=== PATIENT | female | born 1970 | race African-American/Black ===

== ENCOUNTER 2022-02-20 15:31 | Emergency (ER) | payer SELFPAY ==
[~2022-02-20] VITALS: Ht 170.2 cm; Wt 106.9 kg
[2022-02-20 15:40] VITALS: BP 136/83
[2022-02-20] MEDS ORDERED: KETOROLAC 30 MG/ML VIAL. IM ONE (16:30)
[2022-02-20] MEDS ORDERED: ORPHENADRINE CITRATE 60 MG/2 ML VIAL. IM ONE (16:30)
[2022-02-20] MEDS ORDERED: ORPH100T PO (17:46)
--- NOTE | 2022-02-20 17:48 | PHYS DOC ---
Past Medical History Past Medical History: Depression, Diabetes-Type II, Hypertension Past Surgical History: General Adult EDM: Chief Complaint: MUSCLE SPASM/CRAMP HPI: HPI: Patient is a 51 year old female who presents with lateral left chest wall pain. Patient reports she slept in her car for few hours this morning, then slept on her couch at home. She reports that her pain began after waking up. Patient reports the pain starts on the lateral left chest and wraps around to her back. Pain is exacerbated with movement. Additionally, when she inspires deeply, the pain is exacerbated. Patient took a 4 mg Zanaflex at home, which improved her symptoms slightly. Patient denies substernal chest pressure, palpitations, cough, shortness of breath. Review of Systems: Review of Systems: Constitutional: Denies fever, chills or generalized weakness Eyes: Denies change in visual acuity, visual field deficits or discharge HENT: Denies ear pain, nasal congestion or sore throat Respiratory: See HPI Cardiovascular: See HPI GI: Denies abdominal pain, nausea, vomiting, bloody stools or diarrhea : Denies dysuria or hematuria Musculoskeletal: See HPI Integument: Denies rash or other skin lesion Neurologic: Denies headache, focal weakness or sensory changes Heart Score: C/O Chest Pain: N/A Current Medications: Current Medications Medications (Trade) Dose Ordered Sig/Jesenia Route PRN Reason Start Time Stop Time Status Last Admin Dose Admin Ketorolac Tromethamine (Toradol 30mg Vial) 30 mg 1X ONCE IM 02/20/22 16:30 02/20/22 16:31 DC 02/20/22 16:51 30 MG Allergies: Allergies: Allergies Coded Allergies Type Severity Reaction Last Updated Verified No Known Drug Allergies 02/20/22 No Physical Exam: PE: Constitutional: Well developed, well nourished, no acute distress, non-toxic appearance. HENT: Normocephalic, atraumatic, bilateral external ears normal, oropharynx moist, multiple missing dentition, nose normal. Eyes: EOMI, conjunctiva normal, no discharge. Neck: Normal range of motion, no stridor. Cardiovascular: Heart regular rate and rhythm. No apparent murmurs. Lungs & Thorax: Equal thoracic expansion, no increased work of breathing Skin: Warm, dry, no erythema, no rash. Back: No step-off, no tenderness. Neurologic: Alert and oriented x4, normal motor function, normal sensory functio n, no focal deficits noted. Current Patient Data: Vital Signs: Vital Signs Date Time Temp Pulse Resp B/P (MAP) Pulse Ox O2 Delivery O2 Flow Rate FiO2 02/20/22 15:40 98.5 88 18 136/83 (100) 95 Room Air 98.5 Course & Med Decision Making: Course & Med Decision Making Pertinent Labs and Imaging studies reviewed. (See chart for details) Patient reports that pain was very well controlled with Toradol. She requests prescription for muscle relaxer, which I advise she combine with ibuprofen at home. Return precautions are provided. Patient understands and is agreeable to discharge plan. TapPress Disclaimer: TapPress Disclaimer: This electronic medical record was generated, in whole or in part, using a voice recognition dictation system. Departure Departure Impression: Primary Impression: Musculoskeletal chest pain Disposition: HOME / SELF CARE / HOMELESS Condition: IMPROVED Referrals: NO PCP (PCP) Patient Instructions: Chest Wall Pain, [id number], Incentive Spirometer Additional Instructions: EMERGENCY DEPARTMENT GENERAL DISCHARGE INSTRUCTIONS Thank you for coming to [facility] Emergency Department (ED) today and trusting us with you care. We trust that you had a positive experience in our Emergency Department. If you wish to speak to the department management, you may call the director at . YOUR FOLLOW UP INSTRUCTIONS ARE FOLLOWS: 1. Follow up with your primary care doctor. If you do not have a primary doctor, please ask for a resource list of physicians or clinics that may be able to assist you with follow up care. 2. The emergency provider has interpreted your imaging studies, if any were ordered. The radiology entry specialists also reviewed them. If there is a change in the findings, you will be notified in 48 hours when at all possible. 3. If a lab test or culture has been done, your results will be reviewed and you will be notified if you need a change in treatment. 4. Follow instructions verbalized to you and refer to the printouts if needed. ADDITIONAL INSTRUCTIONS AND INFORMATION: 1. Your care today has been supervised by a physician who is specially trained in emergency care. Many problems require more than one evaluation for a complete diagnosis and treatment. We recommend that you schedule your follow up appointment as recommended to ensure complete treatment of you illness or injury. If you are unable to obtain follow up care and continue to have a problem, or if your condition worsens, we recommend that you return to the ED. 2. We are not able to safely determine your condition over the phone nor are we able to give sound medical advice over the phone. For these safety reasons, if you call for medical advice we will ask you to come to the ED for further eval uation. 3. If you have any questions regarding these discharge instructions please call the ED at . SAFETY INFORMATION: In the interest of safety, wellness, and injury prevention; we encourage you to wear your seat belt, if you smoke; quite smoking, and we encourage family to use a protective helmet for bicycling and other sporting events that present an increased risk for head injury. IF YOUR SYMPTOMS WORSEN OR NEW SYMPTOMS DEVELOP, OR YOU HAVE CONCERNS ABOUT YOUR CONDITION; OR IF YOUR CONDITION WORSENS WHILE YOU ARE WAITING FOR YOUR FOLLOW UP APPOINTMENT; EITHER CONTACT YOUR PRIMARY CARE DOCTOR, THE PHYSICIAN WHOSE NAME AND NUMBER YOU WERE GIVEN, OR RETURN TO THE ED IMMEDIATELY. Scripts Orphenadrine Citrate (ORPHENADRINE CITRATE) 100 Mg Tablet.er 1 TAB PO BID, #10 TAB 0 Refills Prov: KAMRYN KIDD 02/20/22 KAMRYN KIDD February 20, 2022 17:48
== END 2022-02-20 17:55 | disposition home or self-care (01) ==
LOC: ER 15:31
DX: R07.89 Other chest pain (principal); E11.9 Type 2 diabetes mellitus without complications; I10 Essential (primary) hypertension
CPT/HCPCS: 96372; 99283; J1885

== ENCOUNTER 2022-02-22 18:58 | Inpatient (IN) | payer SELFPAY ==
[~2022-02-22] VITALS: Ht 170.2 cm; Wt 110.0 kg
[~2022-02-22 18:58] MED LIST: ORPH100T PO
--- NOTE | 2022-02-22 19:40 | PHYS DOC ---
Past Medical History Past Medical History: Depression, Diabetes-Type II, Hypertension Past Surgical History: Smoking Status: Never Smoker Alcohol Use: None General Adult EDM: Chief Complaint: FLANK PAIN HPI: HPI: 51-year-old female, past medical history of hypertension, insulin-dependent diabetes, , presents with almost 1 week of left flank/left posterior chest wall pain. Patient states she was here 02/20/22 complaining of the same pain, seeing Toradol injection and discharged on muscle relaxer. However now she is complaining of dysuria, fatigue, and exertional SOB. Denies fever, chills, nausea, vomiting, chest pain. No diarrhea. No known sick contacts. No leg swelling, travel history, immobilization, hormone therapy, or cancer history. Review of Systems: Review of Systems: Constitutional: Denies fever or chills. [] Eyes: Denies change in visual acuity. [] HENT: Denies nasal congestion or sore throat. [] Respiratory: Denies cough or shortness of breath. [] Cardiovascular: Denies chest pain or edema. [] GI: + L flank/back pain; Denies abdominal pain, nausea, vomiting, bloody stools or diarrhea. [] : + dysuria. [] Musculoskeletal: Denies back pain or joint pain. [] Integument: Denies rash. [] Neurologic: Denies headache, focal weakness or sensory changes. [] Endocrine: Denies polyuria or polydipsia. [] Lymphatic: Denies swollen glands. [] Psychiatric: Denies depression or anxiety. [] Heart Score: C/O Chest Pain: No Risk Factors: Risk Factors: DM, Current or recent (<one month) smoker, HTN, HLP, family history of CAD, obesity. Risk Scores: Score 0 - 3: 2.5% MACE over next 6 weeks - Discharge Home Score 4 - 6: 20.3% MACE over next 6 weeks - Admit for Clinical Observation Score 7 - 10: 72.7% MACE over next 6 weeks - Early Invasive Strategies Current Medications: Current Medications Medications (Trade) Dose Ordered Sig/Jesenia Start Time Stop Time Status Last Admin Dose Admin Morphine Sulfate (Morphine Sulfate) 4 mg 1X ONCE 02/22/22 19:45 02/22/22 19:46 UNV Sodium Chloride 1,000 ml @ 999 mls/hr 1X ONCE 02/22/22 19:45 02/22/22 20:45 UNV Allergies: Allergies: Allergies Coded Allergies Type Severity Reaction Last Updated Verified No Known Drug Allergies 02/22/22 No Physical Exam: PE: Constitutional: Well developed, well nourished, no acute distress, non-toxic appearance. [] HENT: Normocephalic, atraumatic, bilateral external ears normal, oropharynx moist, no oral exudates, nose normal. [] Eyes: PERRLA, EOMI, conjunctiva normal, no discharge. [] Neck: Normal range of motion, no tenderness, supple, no stridor. [] Cardiovascular: Sinus tachycardia, no murmur [] Lungs & Thorax: Bilateral breath sounds clear to auscultation [] Abdomen: Bowel sounds normal, soft, no tenderness, no masses, no pulsatile masses. [] Skin: Warm, dry, no erythema, no rash. [] Back: No tenderness, + left CVA tenderness. [] Extremities: No tenderness, no cyanosis, no clubbing, ROM intact, no edema. [] Neurologic: Alert and oriented X 3, normal motor function, normal sensory function, no focal deficits noted. [] Psychologic: Affect normal, judgement normal, mood normal. [] Current Patient Data: Vital Signs: Vital Signs Date Time Temp Pulse Resp B/P (MAP) Pulse Ox O2 Delivery O2 Flow Rate FiO2 02/22/22 19:25 98.0 117 18 179/87 (117) 95 Room Air 98.0 EKG: EKG: [] Radiology/Procedures: Radiology/Procedures: [] Course & Med Decision Making: Course & Med Decision Making Pertinent Labs and Imaging studies reviewed. (See chart for details) Additional Social History: PMD from non-affiliated facility. Patient Lives at home. Family History: Non-pertinent to today's complaint. Nursing Notes Reviewed Previous Medical Records requested via [facility] Web: Reviewed by me. EMERGENT LABS AND DIAGNOSTIC STUDIES: Results were reviewed and interpreted by me as below PROCEDURE: PORTABLE CHEST 1V IMPRESSION: Moderate left-sided pleural effusion with adjacent airspace disease EMERGENCY DEPARTMENT COURSE/ MEDICAL DECISION MAKING: The patient was placed on a gambling monitor, continuous pulse oximetry and was given supplemental oxygen. I examined the patient, evaluated and addressed patient's chief complaint. Suspicious for pyelonephritis versus cystitis. Rule out other metabolic derangements and infectious etiology. Lower suspicion for ACS, acute PE, AAA, dissection The patient was treated with IV fluids, morphine, zofran Found to have large L pleural effusion and WBC 19, concerning for pneumonia, s/p Ceftriaxone and Doxy, pending cardiac labs and d-dimer Admit tele for pneumonia/effusion After evaluation, I believe the patient is at risk for decompensation and will require admission. However, patients abnormal vital signs/labs are not consistent with sepsis, and the patient does not meet the criteria for sepsis at this time. I discussed the patient's case with Dr. Feng, who expressed understanding and agreed to admit the patient. I suspect the patient will be hospitalized for at least 2 midnights. DIAGNOSTIC IMPRESSION: 1. LLL pneumonia 2. L pleural effusion 3. L back pain DISPOSITION: Disposition: Admit to tele under the service of Dr. Feng Condition: Stable Dragon Disclaimer: Aaliyah Disclaimer: This electronic medical record was generated, in whole or in part, using a voice recognition dictation system. Departure Departure Impression: Primary Impression: Left lower lobe pneumonia Additional Impressions: Hypoxia Exertional dyspnea Large pleural effusion Back pain Disposition: ADMITTED INPATIENT Condition: GUARDED Referrals: NO PCP (PCP) MARILYN LOPEZ MD February 22, 2022 19:39
[2022-02-22] MEDS ORDERED: IV NORMAL SALINE 1000ML BAG 1,000 ML IV ONE (19:45)
[2022-02-22] MEDS ORDERED: MORPHINE SULFATE 4 MG/ML INJ. IVP ONE (19:45)
[2022-02-22 19:57] LABS: BASO # 0.1 x10^3/uL (0.0-0.2); BASO % 0 % (0-3); EOS % 0 % (0-3); HEMATOCRIT 40.8 % (36.0-47.0); HEMOGLOBIN 13.8 g/dL (12.0-15.5); LYMPH # 1.4 x10^3/uL (1.0-4.8); LYMPH % 7 % (24-48); MEAN CORPUSCULAR HEMOGLOBIN 32 pg (25-35); MEAN CORPUSCULAR HGB CONC 34 g/dL (31-37); MEAN CORPUSCULAR VOLUME 95 fL (79-100); MONO # 1.3 x10^3/uL (0.0-1.1); MONO % 7 % (0-9); NEUT # 16.6 x10^3/uL (1.8-7.7); NEUT % 86 % (31-73); PLATELET COUNT 233 x10^3/uL (140-400); RED BLOOD COUNT 4.31 x10^6/uL (3.50-5.40); RED CELL DISTRIBUTION WIDTH 14.1 % (11.5-14.5); WHITE BLOOD COUNT 19.4 x10^3/uL (4.0-11.0)
[2022-02-22 20:13] LABS: CALCIUM 9.7 mg/dL (8.5-10.1); GFR 70.2; POTASSIUM 3.7 mmol/L (3.5-5.1)
[2022-02-22 20:18] LABS: ALBUMIN 2.8 g/dL (3.4-5.0); ALBUMIN/GLOBULIN RATIO 0.6 (1.0-1.7); TOTAL PROTEIN 7.4 g/dL (6.4-8.2)
[2022-02-22] MEDS ORDERED: cefTRIAXone IV Push 1 GM VIAL. IVP ONE (20:30)
[2022-02-22 20:37] LABS: % LYMPHS 5 % (24-48); % MONOS 8 % (0-10); % SEGS 87 % (35-66); PLT ESTIMATE ADEQUATE (ADEQUATE)
[2022-02-22] MEDS ORDERED: ONDANSETRON PF 4 MG/2 ML VIAL. ONE (20:51)
[2022-02-22] MEDS ORDERED: DOXYCYCLINE HYCLATE 100 MG in IV DEXTROSE 5% 100ML 100 ML IV ONE (21:00)
[2022-02-22] MEDS ORDERED: ONDANSETRON PF 4 MG/2 ML VIAL. IVP ONE (21:00)
--- NOTE | 2022-02-22 21:32 | RAD ---
Exam: Chest one view INDICATION: Shortness of breath, pain TECHNIQUE: Frontal view of the chest Comparisons: None FINDINGS: The cardiomediastinal silhouette and pulmonary vessels are within normal limits. Moderate left pleural effusion, with adjacent airspace disease. IMPRESSION: Moderate left-sided pleural effusion with adjacent airspace disease Electronically signed by: Isabel Wharton MD (02/22/2022 9:30 PM) SAM
--- NOTE | 2022-02-22 22:27 | HP ---
DATE OF SERVICE: 02/22/2022 ADMIT DATE: 02/22/2022 CHIEF COMPLAINT: Flank pain. HISTORY OF PRESENT ILLNESS: The patient is a pleasant 51-year-old female who has abdominal pain and flank pain when she breathes in. We did a chest x-ray. She has a large left pleural effusion. We are going to admit the patient, give her IV antibiotics and consult Pulmonary and Interventional Radiology. PAST MEDICAL HISTORY: Depression, diabetes, hypertension, . ALLERGIES: None. FAMILY HISTORY: Diabetes. SOCIAL HISTORY: She does not drink, smoke or take drugs. MEDICATIONS: Reviewed. Please refer to the MRAD. REVIEW OF SYSTEMS: GENERAL: No history of weight change, weakness or fevers. SKIN: No bruising, hair changes or rashes. EYES: No blurred, double or loss of vision. NOSE AND THROAT: No history of nosebleeds, hoarseness or sore throat. HEART: No history of palpitations, chest pain or shortness of breath on exertion. LUNGS: She complains of shortness of breath and pain with inspiration. GASTROINTESTINAL: She complains of flank pain. GENITOURINARY: No history of frequency, urgency, hesitancy or nocturia. NEUROLOGIC: Denies history of numbness, tingling, tremor or weakness. PSYCHIATRIC: No history of panic, anxiety or depression. ENDOCRINE: No history of heat or cold intolerance, polyuria or polydipsia. EXTREMITIES: Denies muscle weakness, joint pain, pain on walking or stiffness. PHYSICAL EXAMINATION: VITALS: Within normal limits and are stable. GENERAL: No apparent distress. Alert and oriented. HEENT: Normal cephalic atraumatic, external auditory canals are patent. EYES: Extraocular muscles are intact, pupils are equally round and reactive to light and accommodation. MUSCULOSKELETAL: Well developed, well nourished, good range of motion. ENDOCRINE: No thyromegaly was palpated. LYMPHATICS: No cervical chain or axillary nodes were noted. HEMATOPOIETIC: No bruising. NECK: Supple, no JVD, no thyromegaly was noted. LUNGS: She has decreased breath sounds on the left. HEART: RRR, S1, S2 present. Peripheral pulses intact, no obvious murmurs were noted. ABDOMEN: Soft, nontender. Positive bowel sounds no organomegaly, normal bowel sounds. EXTREMITIES: Without any cyanosis, clubbing, or edema. Pedal pulses intact, Homans sign is negative. NEUROLOGIC: Normal speech, normal tone. A and O x 3, moves all extremities, no obvious focal deficits. PSYCHIATRIC: Normal affect, normal mood. Stable. SKIN: No ulcerations or rashes, good skin turgor, no jaundice. VASCULAR: Good capillary refill, neurovascular bundle appears to be intact. LABORATORY DATA: White count is 19. ASSESSMENT AND PLAN: Pneumonia and left pleural effusion. The patient will be admitted. We will start IV antibiotics, breathing treatments, oxygen. Consult Pulmonary, consult Interventional Radiology to consider left thoracentesis. Deep venous thrombosis prophylaxis. Full code. JACKIE/ERWIN DR: Vladimir TID: [id number]
[2022-02-22 23:00] VITALS: BP 147/66
[2022-02-22] MEDS ORDERED: ONDANSETRON PF 4 MG/2 ML VIAL. IVP PRN (23:30)
[2022-02-23] MEDS: MORPHINE SULFATE 4 MG/ML INJ. IV PRN ×3 (00:28→08:51)
[2022-02-23 03:00] VITALS: BP 119/71
[2022-02-23] MEDS: IPRATRPIUM/ALBUTEROL 0.5/2.5MG 3 ML NEBU. NEB SCH ×4 (05:45→19:35)
[2022-02-23 07:00] VITALS: BP 134/69
--- NOTE | 2022-02-23 07:44 | PDOC ---
PULMONARY PROGRESS NOTES DATE: 02/23/22 TIME: 07:43 Vitals Vital Signs Date Time Temp Pulse Resp B/P (MAP) Pulse Ox O2 Delivery O2 Flow Rate FiO2 02/23/22 05:45 96 Room Air 02/23/22 03:00 98.3 94 20 119/71 (87) 2.0 98.3 Labs Laboratory Tests Test 02/22/22 19:45 02/23/22 07:30 White Blood Count 19.4 x10^3/uL (4.0-11.0) Red Blood Count 4.31 x10^6/uL (3.50-5.40) Hemoglobin 13.8 g/dL (12.0-15.5) Hematocrit 40.8 % (36.0-47.0) Mean Corpuscular Volume 95 fL (79-100) Mean Corpuscular Hemoglobin 32 pg (25-35) Mean Corpuscular Hemoglobin Concent 34 g/dL (31-37) Red Cell Distribution Width 14.1 % (11.5-14.5) Platelet Count 233 x10^3/uL (140-400) Neutrophils (%) (Auto) 86 % (31-73) Lymphocytes (%) (Auto) 7 % (24-48) Monocytes (%) (Auto) 7 % (0-9) Eosinophils (%) (Auto) 0 % (0-3) Basophils (%) (Auto) 0 % (0-3) Neutrophils # (Auto) 16.6 x10^3/uL (1.8-7.7) Lymphocytes # (Auto) 1.4 x10^3/uL (1.0-4.8) Monocytes # (Auto) 1.3 x10^3/uL (0.0-1.1) Eosinophils # (Auto) 0.0 x10^3/uL (0.0-0.7) Basophils # (Auto) 0.1 x10^3/uL (0.0-0.2) Segmented Neutrophils % 87 % (35-66) Lymphocytes % 5 % (24-48) Monocytes % 8 % (0-10) Platelet Estimate Adequate (ADEQUATE) D-Dimer (Martha) 3.36 ug/mlFEU (0.00-0.50) Sodium Level 139 mmol/L (136-145) Potassium Level 3.7 mmol/L (3.5-5.1) Chloride Level 96 mmol/L (98-107) Carbon Dioxide Level 26 mmol/L (21-32) Anion Gap 17 (6-14) Blood Urea Nitrogen 14 mg/dL (7-20) Creatinine 1.0 mg/dL (0.6-1.0) Estimated GFR (Cockcroft-Gault) 70.2 BUN/Creatinine Ratio 14 (6-20) Glucose Level 227 mg/dL (70-99) Lactic Acid Level 1.5 mmol/L (0.4-2.0) Calcium Level 9.7 mg/dL (8.5-10.1) Total Bilirubin 1.0 mg/dL (0.2-1.0) Aspartate Amino Transf (AST/SGOT) 11 U/L (15-37) Alanine Aminotransferase (ALT/SGPT) 26 U/L (14-59) Alkaline Phosphatase 166 U/L (46-116) Troponin I High Sensitivity 8 ng/L (4-50) FE-[id number]-Type Natriuretic Peptide 69 pg/mL (0-124) Total Protein 7.4 g/dL (6.4-8.2) Albumin 2.8 g/dL (3.4-5.0) Albumin/Globulin Ratio 0.6 (1.0-1.7) SARS-CoV-2 Antigen (Rapid) Negative (NEGATIVE) Glucose (Fingerstick) 132 mg/dL (70-99) Laboratory Tests Test 02/22/22 19:45 02/23/22 07:30 White Blood Count 19.4 x10^3/uL (4.0-11.0) Red Blood Count 4.31 x10^6/uL (3.50-5.40) Hemoglobin 13.8 g/dL (12.0-15.5) Hematocrit 40.8 % (36.0-47.0) Mean Corpuscular Volume 95 fL (79-100) Mean Corpuscular Hemoglobin 32 pg (25-35) Mean Corpuscular Hemoglobin Concent 34 g/dL (31-37) Red Cell Distribution Width 14.1 % (11.5-14.5) Platelet Count 233 x10^3/uL (140-400) Neutrophils (%) (Auto) 86 % (31-73) Lymphocytes (%) (Auto) 7 % (24-48) Monocytes (%) (Auto) 7 % (0-9) Eosinophils (%) (Auto) 0 % (0-3) Basophils (%) (Auto) 0 % (0-3) Neutrophils # (Auto) 16.6 x10^3/uL (1.8-7.7) Lymphocytes # (Auto) 1.4 x10^3/uL (1.0-4.8) Monocytes # (Auto) 1.3 x10^3/uL (0.0-1.1) Eosinophils # (Auto) 0.0 x10^3/uL (0.0-0.7) Basophils # (Auto) 0.1 x10^3/uL (0.0-0.2) Segmented Neutrophils % 87 % (35-66) Lymphocytes % 5 % (24-48) Monocytes % 8 % (0-10) Platelet Estimate Adequate (ADEQUATE) D-Dimer (Martha) 3.36 ug/mlFEU (0.00-0.50) Sodium Level 139 mmol/L (136-145) Potassium Level 3.7 mmol/L (3.5-5.1) Chloride Level 96 mmol/L (98-107) Carbon Dioxide Level 26 mmol/L (21-32) Anion Gap 17 (6-14) Blood Urea Nitrogen 14 mg/dL (7-20) Creatinine 1.0 mg/dL (0.6-1.0) Estimated GFR (Cockcroft-Gault) 70.2 BUN/Creatinine Ratio 14 (6-20) Glucose Level 227 mg/dL (70-99) Lactic Acid Level 1.5 mmol/L (0.4-2.0) Calcium Level 9.7 mg/dL (8.5-10.1) Total Bilirubin 1.0 mg/dL (0.2-1.0) Aspartate Amino Transf (AST/SGOT) 11 U/L (15-37) Alanine Aminotransferase (ALT/SGPT) 26 U/L (14-59) Alkaline Phosphatase 166 U/L (46-116) Troponin I High Sensitivity 8 ng/L (4-50) [id number]-[id number]-Type Natriuretic Peptide 69 pg/mL (0-124) Total Protein 7.4 g/dL (6.4-8.2) Albumin 2.8 g/dL (3.4-5.0) Albumin/Globulin Ratio 0.6 (1.0-1.7) SARS-CoV-2 Antigen (Rapid) Negative (NEGATIVE) Glucose (Fingerstick) 132 mg/dL (70-99) Medications Active Scripts Medications Dose Route/Sig Max Daily Dose Days Date Category Orphenadrine Citrate 100 Mg Tablet.er 1 Tab PO BID 02/20/22 Rx Impression . Full consult to be dictated Review chest x-ray Large left-sided effusion Proceed with thoracentesis, send pleural fluid for routine analysis Rule out PE see orders ARELY YANES MD February 23, 2022 07:43
[2022-02-23] MEDS ORDERED: IOHEXOL 300 MG/ML 100ML VIAL. IV ONE (08:45)
[2022-02-23] MEDS ORDERED: CONTRAST GIVEN. MC PRN (09:00)
--- NOTE | 2022-02-23 09:46 | RAD ---
EXAMINATION: CTA Chest With IV contrast INDICATION:51 years, Female, shortness of breath, pleural effusion, evaluate for pulmonary embolism. COMPARISON: None. TECHNIQUE: Spiral CTA was obtained from the jugular notch through the posterior costophrenic recess. 3-D MIPS, sagittal and coronal reformats were obtained. Exposure: One or more of the following individualized dose reduction techniques were utilized for thi s examination: 1. Automated exposure control 2. Adjustment of the mA and/or kV according to patient size 3. Use of iterative reconstruction technique. FINDINGS: LUNGS/PLEURA: Central airways are patent. Small to moderate left pleural effusion with associated com pressive atelectasis. Segmental atelectasis in the right lung base and right middle lobe. No pneumoth orax. No suspicious pulmonary nodule. Calcified granuloma in the right upper lobe.. MEDIASTINUM: No pathologic mediastinal or hilar adenopathy. The thoracic aorta and pulmonary arteries are normal in caliber. Evaluation for pulmonary embolism is limited due to contrast bolus timing. No central pulmonary embolism to the lobar level. The heart is normal in size. No pericardial effusion. No detectable calcified coronary atherosclerosis. The visualized thyroid and the esophagus are unrem arkable. AXILLA/SOFT TISSUE: Mildly enlarged right axillary lymph nodes measuring up to 1.1 cm in short axis, nonspecific. Regional soft tissues are within normal limits. UPPER ABDOMEN: Diffuse hepatic steatosis. Nodular thickening of the left adrenal gland without discre te nodule. BONES: No evidence of acute fractures or aggressive osseous lesions. IMPRESSION: 1. No central pulmonary embolism to the lobar level. Evaluation for pulmonary embolism is limited du e to contrast bolus timing. 2. Small to moderate left pleural effusion with associated compressive atelectasis. Segmental atelec tasis in the right lung base and right middle lobe. 3. Mildly enlarged right axillary lymph nodes, nonspecific. 4. Diffuse hepatic steatosis. Electronically signed by: Shay Dill MD (02/23/2022 9:43 AM) [facility]
[2022-02-23] MEDS: DOXYCYCLINE HYCLATE 100 MG in IV DEXTROSE 5% 100ML 100 ML IV SCH ×2 (09:55→21:16)
[2022-02-23 11:00] VITALS: BP 131/70
[2022-02-23] MEDS: LACTOBACILLUS RHAMNOSUS GG 1 CAPSULE. PO SCH ×2 (11:00→21:15)
[2022-02-23] MEDS ORDERED: IV NORMAL SALINE 1000ML BAG 1,000 ML IV ONE (13:00)
[2022-02-23] MEDS ORDERED: PROCHLORPERAZINE 10 MG/2 ML VIAL. IM PRN (13:00)
[2022-02-23] MEDS: oxyCODONE/APAP 5/325 1 TAB TABLET PO PRN (13:05)
[2022-02-23 15:00] VITALS: BP 131/68
[2022-02-23 19:00] VITALS: BP 116/71
--- NOTE | 2022-02-23 19:14 | PDOC ---
[facility] [facility] PROGRESS NOTE Date of Service DOS: DATE: 02/23/22 TIME: 19:13 Chief Complaint Chief Complaint Pneumonia and left pleural effusion. The patient will be admitted. We will start IV antibiotics, breathing treatments, oxygen. Consult Pulmonary, consult Interventional Radiology to consider left thoracentesis. Deep venous thrombosis prophylaxis. Full code. History of Present Illness History of Present Illness 02/23 Patient evaluated examined at bedside. Resting in bed on nasal cannula still some shortness of breath. Discussed with patient and son at bedside at great length regarding plan of care. Continue IV antibiotics. Possible thoracentesis tomorrow. Pulmonary recommendations reviewed. Discussed with bedside RN. Vitals/I&O Vitals/I&O: Vital Signs Date Time Temp Pulse Resp B/P (MAP) Pulse Ox O2 Delivery O2 Flow Rate FiO2 02/23/22 16:08 98 Nasal Cannula 2.0 02/23/22 15:00 97.8 90 20 131/68 (89) 97.8 I & O 02/22/22 02/22/22 02/23/22 15:00 23:00 07:00 Intake Total 660 ml Balance 660 ml Physical Exam General: Alert, Oriented X3, Cooperative Heart: Regular rate, Normal S1, Normal S2 Lungs: Other (decreased throughout) Abdomen: Normal bowel sounds, Soft, No tenderness Extremities: No edema, Normal pulses Skin: No significant lesion Labs Labs: Laboratory Tests Test 02/22/22 19:45 02/23/22 07:30 02/23/22 11:15 02/23/22 16:51 White Blood Count 19.4 x10^3/uL (4.0-11.0) Red Blood Count 4.31 x10^6/uL (3.50-5.40) Hemoglobin 13.8 g/dL (12.0-15.5) Hematocrit 40.8 % (36.0-47.0) Mean Corpuscular Volume 95 fL (79-100) Mean Corpuscular Hemoglobin 32 pg (25-35) Mean Corpuscular Hemoglobin Concent 34 g/dL (31-37) Red Cell Distribution Width 14.1 % (11.5-14.5) Platelet Count 233 x10^3/uL (140-400) Neutrophils (%) (Auto) 86 % (31-73) Lymphocytes (%) (Auto) 7 % (24-48) Monocytes (%) (Auto) 7 % (0-9) Eosinophils (%) (Auto) 0 % (0-3) Basophils (%) (Auto) 0 % (0-3) Neutrophils # (Auto) 16.6 x10^3/uL (1.8-7.7) Lymphocytes # (Auto) 1.4 x10^3/uL (1.0-4.8) Monocytes # (Auto) 1.3 x10^3/uL (0.0-1.1) Eosinophils # (Auto) 0.0 x10^3/uL (0.0-0.7) Basophils # (Auto) 0.1 x10^3/uL (0.0-0.2) Segmented Neutrophils % 87 % (35-66) Lymphocytes % 5 % (24-48) Monocytes % 8 % (0-10) Platelet Estimate Adequate (ADEQUATE) D-Dimer (Martha) 3.36 ug/mlFEU (0.00-0.50) Sodium Level 139 mmol/L (136-145) Potassium Level 3.7 mmol/L (3.5-5.1) Chloride Level 96 mmol/L (98-107) Carbon Dioxide Level 26 mmol/L (21-32) Anion Gap 17 (6-14) Blood Urea Nitrogen 14 mg/dL (7-20) Creatinine 1.0 mg/dL (0.6-1.0) Estimated GFR (Cockcroft-Gault) 70.2 BUN/Creatinine Ratio 14 (6-20) Glucose Level 227 mg/dL (70-99) Lactic Acid Level 1.5 mmol/L (0.4-2.0) Calcium Level 9.7 mg/dL (8.5-10.1) Total Bilirubin 1.0 mg/dL (0.2-1.0) Aspartate Amino Transf (AST/SGOT) 11 U/L (15-37) Alanine Aminotransferase (ALT/SGPT) 26 U/L (14-59) Alkaline Phosphatase 166 U/L (46-116) Troponin I High Sensitivity 8 ng/L (4-50) PC-Ira-C-Type Natriuretic Peptide 69 pg/mL (0-124) Total Protein 7.4 g/dL (6.4-8.2) Albumin 2.8 g/dL (3.4-5.0) Albumin/Globulin Ratio 0.6 (1.0-1.7) SARS-CoV-2 Antigen (Rapid) Negative (NEGATIVE) Glucose (Fingerstick) 132 mg/dL (70-99) 198 mg/dL (70-99) 284 mg/dL (70-99) Assessment and Plan Assessmemt and Plan Problems Medical Problems: (1) Back pain Status: Acute (2) Exertional dyspnea Status: Acute (3) Hypoxia Status: Acute (4) Large pleural effusion Status: Acute (5) Left lower lobe pneumonia Status: Acute Comment Review of Relevant I have reviewed the following items becca (where applicable) has been applied. Medications: Current Medications Medications (Trade) Dose Ordered Sig/Jesenia Route PRN Reason Start Time Stop Time Status Last Admin Dose Admin Sodium Chloride 1,000 ml @ 999 mls/hr 1X ONCE IV 02/22/22 19:45 02/22/22 20:45 DC 02/22/22 19:45 Morphine Sulfate (Morphine Sulfate) 4 mg 1X ONCE IVP 02/22/22 19:45 02/22/22 19:54 DC 02/22/22 19:45 Ceftriaxone Sodium (Rocephin) 1 gm 1X ONCE IVP 02/22/22 20:30 02/22/22 20:31 DC 02/22/22 20:30 Doxycycline Hyclate 100 mg/ Dextrose 100 ml @ 50 mls/hr 1X ONCE IV 02/22/22 21:00 02/22/22 22:59 DC 02/22/22 21:00 Ondansetron HCl (Zofran) 4 mg 1X ONCE IVP 02/22/22 21:00 02/22/22 21:01 DC 02/22/22 21:00 Doxycycline Hyclate 100 mg/ Dextrose 100 ml @ 50 mls/hr Q12HR IV 02/23/22 09:00 02/23/22 09:55 Albuterol/ Ipratropium (Duoneb) 3 ml RTQID NEB 02/23/22 08:00 02/23/22 16:08 Morphine Sulfate (Morphine Sulfate) 4 mg PRN Q3HRS PRN IV SEVERE PAIN 7-10 02/22/22 23:30 02/23/22 08:51 Ondansetron HCl (Zofran) 8 mg PRN Q6HRS PRN IVP NAUSEA/VOMITING 1ST CHOICE 02/22/22 23:30 02/23/22 08:51 Enoxaparin Sodium (Lovenox 120mg Syringe) 110 mg Q12HR SQ 02/23/22 09:00 02/23/22 14:21 DC 02/23/22 09:54 Iohexol (Omnipaque 300 Mg/ml) 100 ml 1X ONCE IV 02/23/22 08:45 02/23/22 08:59 DC 02/23/22 08:45 Prochlorperazine Edisylate (Compazine) 10 mg PRN Q6HRS PRN IM NAUSEA/VOMITING 02/23/22 13:00 02/23/22 13:05 Oxycodone/ Acetaminophen (Percocet 5/325) 1 tab PRN Q4HRS PRN PO SEVERE PAIN 02/23/22 13:00 02/23/22 13:05 Sodium Chloride 1,000 ml @ 75 mls/hr 1X ONCE IV 02/23/22 13:00 02/24/22 02:19 02/23/22 13:00 Justifications for Admission Other Justification FREDDIE MOSLEY MD February 23, 2022 19:14
[2022-02-23] MEDS ORDERED: DEXTROSE 50% 25 GM / 50ML DISP.SYRIN. IV PRN (19:15)
[2022-02-23] MEDS: cefTRIAXone IV Push 1 GM VIAL. IVP SCH (21:13)
[2022-02-23] MEDS ORDERED: LOSA1TAB25 PO (21:52)
[2022-02-23] MEDS ORDERED: ATOR40TA59 PO (21:52)
[2022-02-23] MEDS ORDERED: ASPI-630 PO (21:52)
[2022-02-23] MEDS ORDERED: BUPR450T3 PO (21:52)
[2022-02-23] MEDS ORDERED: EMPA25TA3 PO (21:52)
[2022-02-23] MEDS ORDERED: AMLO-187 PO (21:52)
[2022-02-23] MEDS ORDERED: IBUP-1060 PO (21:52)
[2022-02-23] MEDS ORDERED: IBUPROFEN 400 MG TABLET. PO PRN (22:15)
[2022-02-23] MEDS: CYCLOBENZAPRINE 10 MG TABLET. PO SCH (22:30)
[2022-02-23] MEDS: ATORVASTATIN CALCIUM 40 MG TABLET. PO SCH (22:30)
[2022-02-23 23:00] VITALS: BP 132/69
[2022-02-24] VITALS (10 sets, daily range): BP systolic 102–174; BP diastolic 57–105
[2022-02-24] MEDS: oxyCODONE/APAP 5/325 1 TAB TABLET PO PRN ×2 (03:07→21:17)
[2022-02-24] MEDS: IPRATRPIUM/ALBUTEROL 0.5/2.5MG 3 ML NEBU. NEB SCH ×4 (07:57→19:37)
[2022-02-24] MEDS: INSULIN LISPRO 300 UNITS/3 ML VIAL. SQ SCH ×3 (08:00→17:00)
[2022-02-24] MEDS: DOXYCYCLINE HYCLATE 100 MG in IV DEXTROSE 5% 100ML 100 ML IV SCH (08:48)
--- NOTE | 2022-02-24 09:03 | PDOC ---
PULMONARY PROGRESS NOTES DATE: 02/24/22 TIME: 09:03 Subjective Patient still has pleurisy, not more short of air. Cough mostly nonproductive Vitals Vital Signs Date Time Temp Pulse Resp B/P (MAP) Pulse Ox O2 Delivery O2 Flow Rate FiO2 02/24/22 07:57 96 Nasal Cannula 2.0 02/24/22 07:00 98.4 101 20 151/81 (104) 98.4 ROS: No Nausea, No Chest Pain, No Abdominal Pain, No Increase Cough Lungs: Other (decreased throughout) Cardiovascular: S2 Abdomen: Soft Neuro Exam: Alert Extremities: No Edema Skin: Warm Labs Laboratory Tests Test 02/22/22 19:45 02/23/22 07:30 02/23/22 11:15 02/23/22 16:51 White Blood Count 19.4 x10^3/uL (4.0-11.0) Red Blood Count 4.31 x10^6/uL (3.50-5.40) Hemoglobin 13.8 g/dL (12.0-15.5) Hematocrit 40.8 % (36.0-47.0) Mean Corpuscular Volume 95 fL (79-100) Mean Corpuscular Hemoglobin 32 pg (25-35) Mean Corpuscular Hemoglobin Concent 34 g/dL (31-37) Red Cell Distribution Width 14.1 % (11.5-14.5) Platelet Count 233 x10^3/uL (140-400) Neutrophils (%) (Auto) 86 % (31-73) Lymphocytes (%) (Auto) 7 % (24-48) Monocytes (%) (Auto) 7 % (0-9) Eosinophils (%) (Auto) 0 % (0-3) Basophils (%) (Auto) 0 % (0-3) Neutrophils # (Auto) 16.6 x10^3/uL (1.8-7.7) Lymphocytes # (Auto) 1.4 x10^3/uL (1.0-4.8) Monocytes # (Auto) 1.3 x10^3/uL (0.0-1.1) Eosinophils # (Auto) 0.0 x10^3/uL (0.0-0.7) Basophils # (Auto) 0.1 x10^3/uL (0.0-0.2) Segmented Neutrophils % 87 % (35-66) Lymphocytes % 5 % (24-48) Monocytes % 8 % (0-10) Platelet Estimate Adequate (ADEQUATE) D-Dimer (Martha) 3.36 ug/mlFEU (0.00-0.50) Sodium Level 139 mmol/L (136-145) Potassium Level 3.7 mmol/L (3.5-5.1) Chloride Level 96 mmol/L (98-107) Carbon Dioxide Level 26 mmol/L (21-32) Anion Gap 17 (6-14) Blood Urea Nitrogen 14 mg/dL (7-20) Creatinine 1.0 mg/dL (0.6-1.0) Estimated GFR (Cockcroft-Gault) 70.2 BUN/Creatinine Ratio 14 (6-20) Glucose Level 227 mg/dL (70-99) Lactic Acid Level 1.5 mmol/L (0.4-2.0) Calcium Level 9.7 mg/dL (8.5-10.1) Total Bilirubin 1.0 mg/dL (0.2-1.0) Aspartate Amino Transf (AST/SGOT) 11 U/L (15-37) Alanine Aminotransferase (ALT/SGPT) 26 U/L (14-59) Alkaline Phosphatase 166 U/L (46-116) Troponin I High Sensitivity 8 ng/L (4-50) OI-Uih-G-Type Natriuretic Peptide 69 pg/mL (0-124) Total Protein 7.4 g/dL (6.4-8.2) Albumin 2.8 g/dL (3.4-5.0) Albumin/Globulin Ratio 0.6 (1.0-1.7) SARS-CoV-2 Antigen (Rapid) Negative (NEGATIVE) Glucose (Fingerstick) 132 mg/dL (70-99) 198 mg/dL (70-99) 284 mg/dL (70-99) Test 02/23/22 20:41 02/24/22 07:41 Glucose (Fingerstick) 255 mg/dL (70-99) 159 mg/dL (70-99) Laboratory Tests Test 02/23/22 11:15 02/23/22 16:51 02/23/22 20:41 02/24/22 07:41 Glucose (Fingerstick) 198 mg/dL (70-99) 284 mg/dL (70-99) 255 mg/dL (70-99) 159 mg/dL (70-99) Medications Active Scripts Medications Dose Route/Sig Max Daily Dose Days Date Category Orphenadrine Citrate 100 Mg Tablet.er 1 Tab PO BID 02/20/22 Rx Impression . Progressive dyspnea multifactorial CT angiogram from yesterday reviewed, no evidence of PE, there is a loculated effusion loculated effusion Pneumonia with parapneumonic effusion Type 2 diabetes Leukocytosis Plan . Plan Change Lovenox dosing to DVT prophylaxis Discussed with interventional radiologist, proceed with chest tube placement Routine analysis of pleural fluid, including microbiology and cytology Monitor blood sugars ARELY YANES MD February 24, 2022 09:03
[2022-02-24] MEDS ORDERED: fentaNYL PF VIAL 100 MCG/2 ML VIAL IV ONE (15:15)
[2022-02-24] MEDS: hydroCHLOROthiazide 12.5 MG TABLET PO SCH (15:46)
[2022-02-24] MEDS: ASPIRIN CHEWABLE 81 MG TABLET. PO SCH (15:46)
[2022-02-24] MEDS: buPROPion XL 150 MG TAB.ER.24H. PO SCH (15:46)
[2022-02-24] MEDS: EMPAGLIFLOZIN 25 MG TABLET. PO SCH (15:46)
[2022-02-24] MEDS: LOSARTAN POTASSIUM 50 MG TABLET. PO SCH (15:47)
[2022-02-24] MEDS: LACTOBACILLUS RHAMNOSUS GG 1 CAPSULE. PO SCH ×2 (15:47→21:16)
[2022-02-24] MEDS: ENOXAPARIN 40 MG/0.4 ML SYRINGE. SQ SCH (15:48)
[2022-02-24] MEDS: CYCLOBENZAPRINE 10 MG TABLET. PO SCH ×2 (15:50→19:15)
--- NOTE | 2022-02-24 16:25 | PDOC ---
[facility] PROGRESS NOTE Date of Service DOS: DATE: 02/24/22 TIME: 16:24 Chief Complaint Chief Complaint Pneumonia and left pleural effusion. The patient will be admitted. We will start IV antibiotics, breathing treatments, oxygen. Consult Pulmonary, consult Interventional Radiology to consider left thoracentesis. Deep venous thrombosis prophylaxis. Full code. History of Present Illness History of Present Illness 02/24: Patient seen and evaluated. She states she is breathing much better with chest tube and removal of fluid. Still breathing on 2 L nasal cannula. Continue current IV antibiotics we will continue to wean oxygen as tolerated. 02/23 Patient evaluated examined at bedside. Resting in bed on nasal cannula still some shortness of breath. Discussed with patient and son at bedside at great length regarding plan of care. Continue IV antibiotics. Possible thoracentesis tomorrow. Pulmonary recommendations reviewed. Discussed with bedside RN. Vitals/I&O Vitals/I&O: Vital Signs Date Time Temp Pulse Resp B/P (MAP) Pulse Ox O2 Delivery O2 Flow Rate FiO2 02/24/22 16:05 97 Nasal Cannula 2.0 02/24/22 15:48 64 138/87 02/24/22 15:10 40 02/24/22 11:00 98.8 98.8 I & O 02/23/22 02/23/22 02/24/22 15:00 23:00 07:00 Intake Total 100 ml 868 ml 0 ml Balance 100 ml 868 ml 0 ml Physical Exam General: Alert, Oriented X3, Cooperative Heart: Regular rate, Normal S1, Normal S2 Lungs: Other (decreased throughout) Abdomen: Normal bowel sounds, Soft, No tenderness Extremities: No edema, Normal pulses Skin: No significant lesion Labs Labs: Laboratory Tests Test 02/23/22 16:51 02/23/22 20:41 02/24/22 07:41 02/24/22 12:02 Glucose (Fingerstick) 284 mg/dL (70-99) 255 mg/dL (70-99) 159 mg/dL (70-99) 194 mg/dL (70-99) Assessment and Plan Assessmemt and Plan Problems Medical Problems: (1) Back pain Status: Acute (2) Exertional dyspnea Status: Acute (3) Hypoxia Status: Acute (4) Large pleural effusion Status: Acute (5) Left lower lobe pneumonia Status: Acute Comment Review of Relevant I have reviewed the following items becca (where applicable) has been applied. Medications: Current Medications Medications (Trade) Dose Ordered Sig/Jesenia Route PRN Reason Start Time Stop Time Status Last Admin Dose Admin Ceftriaxone Sodium (Rocephin) 1 gm Q24H IVP 02/23/22 21:00 02/23/22 21:13 Enoxaparin Sodium (Lovenox 40mg Syringe) 40 mg Q24H SQ 02/24/22 09:00 02/24/22 15:48 Amlodipine Besylate (Norvasc) 10 mg DAILY PO 02/24/22 09:00 02/24/22 15:48 Aspirin (Aspirin Chewable) 81 mg DAILY PO 02/24/22 09:00 02/24/22 15:46 Empaglifozin (Jardiance) 25 mg DAILY08 PO 02/24/22 08:00 02/24/22 15:46 Bupropion HCl (Wellbutrin Xl) 300 mg DAILY PO 02/24/22 09:00 02/24/22 15:46 Losartan Potassium (Cozaar) 100 mg DAILY PO 02/24/22 09:00 02/24/22 15:47 Hydrochlorothiazide (Microzide) 12.5 mg DAILY PO 02/24/22 09:00 02/24/22 15:46 Fentanyl Citrate (Fentanyl 2ml Vial) 100 mcg 1X ONCE IV 02/24/22 15:15 02/24/22 15:18 DC 02/24/22 15:11 Justifications for Admission Other Justification LYDIA WHITEHEAD MD February 24, 2022 16:25
[2022-02-24 17:36] LABS: BF CLARITY CLEAR; BF COLOR YELLOW; BF SOURCE PLEURAL; BF WBC COUNT 550 /cmm (Not Established)
[2022-02-24 17:37] LABS: BF MON % 4 %; BF PMN % 96 %; BF RBC COUNT 350 /cmm (Not Established)
[2022-02-24] MEDS: MORPHINE SULFATE 4 MG/ML INJ. IV PRN (19:15)
[2022-02-24] MEDS: ATORVASTATIN CALCIUM 40 MG TABLET. PO SCH (21:16)
[2022-02-24] MEDS: cefTRIAXone IV Push 1 GM VIAL. IVP SCH (21:18)
[2022-02-24] MEDS: DOXYCYCLINE HYCLATE 100 MG TABLET PO SCH (21:24)
--- NOTE | 2022-02-24 23:33 | CONS ---
DATE OF CONSULTATION: 02/24/2022 ATTENDING PHYSICIAN: Rogers Feng DO REASON FOR CONSULTATION: The patient is seen in pulmonary consultation at the request of Dr. Feng for abnormal CT chest revealing a loculated effusion. HISTORY OF PRESENT ILLNESS: The patient is a 51-year-old with a history of hypertension and insulin-dependent diabetes presented with a 1-week history of left-sided chest discomfort. Upon further questioning, the patient recalls having acute onset of shortness of air with pleuritic type of discomfort and some dizziness. She presented to the Emergency for further evaluation and underwent a chest x-ray, which revealed moderate left-sided pleural effusion and some atelectasis. I was asked to see her in consultation. PAST MEDICAL HISTORY: Otherwise remarkable for as indicated above, hypertension, diabetes type 2, insulin dependent, depression. PAST SURGICAL HISTORY: . SOCIAL HISTORY: She does not smoke. REVIEW OF SYSTEMS: As indicated above. Otherwise, a 10-point system was reviewed and negative. CURRENT MEDICATIONS: List was reviewed. The patient currently being treated with empiric antibiotics, ceftriaxone and doxycycline. FAMILY HISTORY: Noncontributory. PHYSICAL EXAMINATION: VITAL SIGNS: Stable. O2 saturation was greater than 92%, currently on 2 liters. HEENT: Eyes: The sclerae were nonicteric. NECK: Jugular venous distention was not elevated. No lymphadenopathy. CHEST: Full expansion. LUNGS: Diminished breath sounds at left base. CARDIOVASCULAR: Regular rate and rhythm with S1, S2, no S3. ABDOMEN: Soft, nontender, nondistended. EXTREMITIES: No clubbing, cyanosis or edema. NEUROLOGIC: The patient was awake, alert, following commands. A detailed neuro exam was not performed. LABORATORY DATA: Reviewed. White count was 19,000, hemoglobin and hematocrit noted. Electrolytes were noted. D-dimer was elevated. SARS-CoV-2 was negative. IMPRESSION: 1. Abnormal chest x-ray revealing left-sided infiltrate and effusion. 2. Progressive dyspnea secondary to above. 3. Pleurisy. 4. Possible pulmonary emboli. 5. Morbid obesity. 6. Type 2 diabetes. 7. Leukocytosis. 8. Elevated D-dimer. DISCUSSION: Chest x-ray findings compatible with possibility of pneumonia with parapneumonic effusion, with that being said, we will proceed with CT angiogram to rule out PE. Clinically, I think the patient has pneumonia with parapneumonic effusion. We will continue empiric antibiotics. PLAN: 1. CT angiogram. 2. Thoracentesis. 3. Continue empiric antibiotics. 4. Monitor clinical course and make adjustments. 5. We will initiate Lovenox 1 mg/kg, we will await results of CT angiogram and make adjustments on the Lovenox dosing. JULIET DR: Irma TID: [id number]
[2022-02-25] MEDS: MORPHINE SULFATE 4 MG/ML INJ. IV PRN (02:36)
[2022-02-25] MEDS: oxyCODONE/APAP 5/325 1 TAB TABLET PO PRN ×4 (02:36→21:25)
[2022-02-25 03:23] VITALS: BP 120/67
[2022-02-25 06:52] LABS: CALCIUM 9.6 mg/dL (8.5-10.1); CREATININE 0.8 mg/dL (0.6-1.0); GFR 90.8; POTASSIUM 3.4 mmol/L (3.5-5.1)
[2022-02-25 07:00] VITALS: BP 117/74
[2022-02-25 07:13] LABS: BASO % 0 % (0-3); EOS % 0 % (0-3); HEMATOCRIT 36.4 % (36.0-47.0); HEMOGLOBIN 12.1 g/dL (12.0-15.5); LYMPH # 1.7 x10^3/uL (1.0-4.8); LYMPH % 14 % (24-48); MEAN CORPUSCULAR HEMOGLOBIN 31 pg (25-35); MEAN CORPUSCULAR HGB CONC 33 g/dL (31-37); MEAN CORPUSCULAR VOLUME 95 fL (79-100); MONO % 8 % (0-9); NEUT # 9.3 x10^3/uL (1.8-7.7); NEUT % 77 % (31-73); PLATELET COUNT 258 x10^3/uL (140-400); RED BLOOD COUNT 3.85 x10^6/uL (3.50-5.40)
[2022-02-25] MEDS: INSULIN LISPRO 300 UNITS/3 ML VIAL. SQ SCH ×3 (08:00→17:49)
[2022-02-25] MEDS: IPRATRPIUM/ALBUTEROL 0.5/2.5MG 3 ML NEBU. NEB SCH ×4 (08:04→20:47)
--- NOTE | 2022-02-25 08:20 | RAD ---
XR CHEST 1V History: Reason: Pleural fluid / Spl. Instructions: / History: Comparison: February 22, 2022 Findings: Interval placement left basilar pleural drain. Moderate loculated left pleural effusion, unchanged. I ncreased patchy left lung opacities. Mild right basilar linear atelectasis. Unchanged heart size. No pneumothorax. Impression: 1. Interval placement left basilar pigtail pleural drain. Unchanged loculated left pleural effusion. 2. Increased patchy left lung opacities, may represent atelectasis and consolidations. Electronically signed by: Yoshi Villalba DO (02/25/2022 8:18 AM) [id number]
[2022-02-25] MEDS: buPROPion XL 150 MG TAB.ER.24H. PO SCH (08:54)
[2022-02-25] MEDS: hydroCHLOROthiazide 12.5 MG TABLET PO SCH (08:54)
[2022-02-25] MEDS: DOXYCYCLINE HYCLATE 100 MG TABLET PO SCH ×2 (08:54→21:24)
[2022-02-25] MEDS: LACTOBACILLUS RHAMNOSUS GG 1 CAPSULE. PO SCH ×2 (08:55→21:24)
[2022-02-25] MEDS: CYCLOBENZAPRINE 10 MG TABLET. PO SCH ×2 (08:55→21:24)
[2022-02-25] MEDS: EMPAGLIFLOZIN 25 MG TABLET. PO SCH (08:56)
[2022-02-25] MEDS: LOSARTAN POTASSIUM 50 MG TABLET. PO SCH (08:56)
[2022-02-25] MEDS: ASPIRIN CHEWABLE 81 MG TABLET. PO SCH (09:00)
[2022-02-25] MEDS: ENOXAPARIN 40 MG/0.4 ML SYRINGE. SQ SCH (09:05)
[2022-02-25 11:00] VITALS: BP 128/62
[2022-02-25] MEDS ORDERED: PIP/TAZO PER PHARMACY MC PRN (11:30)
--- NOTE | 2022-02-25 11:30 | PDOC ---
PULMONARY PROGRESS NOTES DATE: 02/25/22 TIME: 11:25 Subjective Status post left chest tube. Feels better., not more short of air. Cough mostly nonproductive Vitals Vital Signs Date Time Temp Pulse Resp B/P (MAP) Pulse Ox O2 Delivery O2 Flow Rate FiO2 02/25/22 09:30 19 93 Nasal Cannula 2.0 02/25/22 08:56 101 117/74 02/25/22 07:00 98.3 98.3 ROS: No Nausea, No Chest Pain, No Abdominal Pain, No Increase Cough General: Alert, No acute distress Lungs: Other (decreased throughout, left lung) Cardiovascular: S2 Abdomen: Soft Neuro Exam: Alert Extremities: No Edema Skin: Warm Labs Laboratory Tests Test 02/23/22 16:51 02/23/22 20:41 02/24/22 07:41 02/24/22 12:02 Glucose (Fingerstick) 284 mg/dL (70-99) 255 mg/dL (70-99) 159 mg/dL (70-99) 194 mg/dL (70-99) Test 02/24/22 14:30 02/24/22 16:27 02/24/22 20:34 02/25/22 05:55 Body Fluid Source Pleural Body Fluid Color Yellow Body Fluid Clarity Clear Body Fluid pH 7.29 Body Fluid Nucleated Cells 550 /cmm (Not Established) Body Fluid Mononuclear WBCs (%) 4 % Body Fluid Polymorphonuclear Cells 96 % Body Fluid Total RBCs Counted 350 /cmm (Not Established) Glucose (Fingerstick) 171 mg/dL (70-99) 197 mg/dL (70-99) White Blood Count 12.0 x10^3/uL (4.0-11.0) Red Blood Count 3.85 x10^6/uL (3.50-5.40) Hemoglobin 12.1 g/dL (12.0-15.5) Hematocrit 36.4 % (36.0-47.0) Mean Corpuscular Volume 95 fL (79-100) Mean Corpuscular Hemoglobin 31 pg (25-35) Mean Corpuscular Hemoglobin Concent 33 g/dL (31-37) Red Cell Distribution Width 14.0 % (11.5-14.5) Platelet Count 258 x10^3/uL (140-400) Neutrophils (%) (Auto) 77 % (31-73) Lymphocytes (%) (Auto) 14 % (24-48) Monocytes (%) (Auto) 8 % (0-9) Eosinophils (%) (Auto) 0 % (0-3) Basophils (%) (Auto) 0 % (0-3) Neutrophils # (Auto) 9.3 x10^3/uL (1.8-7.7) Lymphocytes # (Auto) 1.7 x10^3/uL (1.0-4.8) Monocytes # (Auto) 1.0 x10^3/uL (0.0-1.1) Eosinophils # (Auto) 0.0 x10^3/uL (0.0-0.7) Basophils # (Auto) 0.0 x10^3/uL (0.0-0.2) Sodium Level 141 mmol/L (136-145) Potassium Level 3.4 mmol/L (3.5-5.1) Chloride Level 102 mmol/L (98-107) Carbon Dioxide Level 23 mmol/L (21-32) Anion Gap 16 (6-14) Blood Urea Nitrogen 18 mg/dL (7-20) Creatinine 0.8 mg/dL (0.6-1.0) Estimated GFR (Cockcroft-Gault) 90.8 Glucose Level 115 mg/dL (70-99) Calcium Level 9.6 mg/dL (8.5-10.1) Test 02/25/22 07:34 Glucose (Fingerstick) 118 mg/dL (70-99) Laboratory Tests Test 02/24/22 12:02 02/24/22 14:30 02/24/22 16:27 02/24/22 20:34 Glucose (Fingerstick) 194 mg/dL (70-99) 171 mg/dL (70-99) 197 mg/dL (70-99) Body Fluid Source Pleural Body Fluid Color Yellow Body Fluid Clarity Clear Body Fluid pH 7.29 Body Fluid Nucleated Cells 550 /cmm (Not Established) Body Fluid Mononuclear WBCs (%) 4 % Body Fluid Polymorphonuclear Cells 96 % Body Fluid Total RBCs Counted 350 /cmm (Not Established) Test 02/25/22 05:55 02/25/22 07:34 White Blood Count 12.0 x10^3/uL (4.0-11.0) Red Blood Count 3.85 x10^6/uL (3.50-5.40) Hemoglobin 12.1 g/dL (12.0-15.5) Hematocrit 36.4 % (36.0-47.0) Mean Corpuscular Volume 95 fL (79-100) Mean Corpuscular Hemoglobin 31 pg (25-35) Mean Corpuscular Hemoglobin Concent 33 g/dL (31-37) Red Cell Distribution Width 14.0 % (11.5-14.5) Platelet Count 258 x10^3/uL (140-400) Neutrophils (%) (Auto) 77 % (31-73) Lymphocytes (%) (Auto) 14 % (24-48) Monocytes (%) (Auto) 8 % (0-9) Eosinophils (%) (Auto) 0 % (0-3) Basophils (%) (Auto) 0 % (0-3) Neutrophils # (Auto) 9.3 x10^3/uL (1.8-7.7) Lymphocytes # (Auto) 1.7 x10^3/uL (1.0-4.8) Monocytes # (Auto) 1.0 x10^3/uL (0.0-1.1) Eosinophils # (Auto) 0.0 x10^3/uL (0.0-0.7) Basophils # (Auto) 0.0 x10^3/uL (0.0-0.2) Sodium Level 141 mmol/L (136-145) Potassium Level 3.4 mmol/L (3.5-5.1) Chloride Level 102 mmol/L (98-107) Carbon Dioxide Level 23 mmol/L (21-32) Anion Gap 16 (6-14) Blood Urea Nitrogen 18 mg/dL (7-20) Creatinine 0.8 mg/dL (0.6-1.0) Estimated GFR (Cockcroft-Gault) 90.8 Glucose Level 115 mg/dL (70-99) Calcium Level 9.6 mg/dL (8.5-10.1) Glucose (Fingerstick) 118 mg/dL (70-99) Medications Active Scripts Medications Dose Route/Sig Max Daily Dose Days Date Category Orphenadrine Citrate 100 Mg Tablet.er 1 Tab PO BID 02/20/22 Rx Impression . Abnormal CT chest with multiloculated left lung effusion. Pneumonia with suspected parapneumonic effusion. Status post left chest tube Type 2 diabetes Leukocytosis Plan . Plan Continue to monitor chest x-ray. Will need a repeat CT chest to assess for any improvement in loculated effusion. May need tPA via chest tube. Empiric antibiotics. Change Rocephin to Zosyn. Continue doxycycline. Routine analysis of pleural fluid, including microbiology and cytology Monitor blood sugars IMAN BEACH MD February 25, 2022 11:30
--- NOTE | 2022-02-25 12:14 | PDOC ---
[facility] [facility] PROGRESS NOTE Date of Service DOS: DATE: 02/25/22 TIME: 12:12 Chief Complaint Chief Complaint Pneumonia and left pleural effusion. The patient will be admitted. We will start IV antibiotics, breathing treatments, oxygen. Consult Pulmonary, consult Interventional Radiology to consider left thoracentesis. Deep venous thrombosis prophylaxis. Full code. History of Present Illness History of Present Illness 02/25: Patient feels much better with chest tube in place. No worsening shortness of breath. She did have gram-positive cocci in 1 of 3 bottles. I have increase Rocephin to [address] consultation to ID. 02/24: Patient seen and evaluated. She states she is breathing much better with chest tube and removal of fluid. Still breathing on 2 L nasal cannula. Continue current IV antibiotics we will continue to wean oxygen as tolerated. 02/23 Patient evaluated examined at bedside. Resting in bed on nasal cannula still some shortness of breath. Discussed with patient and son at bedside at great length regarding plan of care. Continue IV antibiotics. Possible thoracentesis tomorrow. Pulmonary recommendations reviewed. Discussed with bedside RN. Vitals/I&O Vitals/I&O: Vital Signs Date Time Temp Pulse Resp B/P (MAP) Pulse Ox O2 Delivery O2 Flow Rate FiO2 02/25/22 11:31 Nasal Cannula 2.0 02/25/22 11:00 98.1 94 20 128/62 (84) 92 98.1 I & O 02/24/22 02/24/22 02/25/22 15:00 23:00 07:00 Intake Total 0 ml 920 ml Output Total 50 ml 20 ml Balance 0 ml -50 ml 900 ml Physical Exam General: Alert, Oriented X3, Cooperative Heart: Regular rate, Normal S1, Normal S2 Lungs: Other (decreased throughout, left lung) Abdomen: Normal bowel sounds, Soft, No tenderness Extremities: No edema, Normal pulses Skin: No significant lesion Labs Labs: Laboratory Tests Test 02/24/22 14:30 02/24/22 16:27 02/24/22 20:34 02/25/22 05:55 Body Fluid Source Pleural Body Fluid Color Yellow Body Fluid Clarity Clear Body Fluid pH 7.29 Body Fluid Nucleated Cells 550 /cmm (Not Established) Body Fluid Mononuclear WBCs (%) 4 % Body Fluid Polymorphonuclear Cells 96 % Body Fluid Total RBCs Counted 350 /cmm (Not Established) Glucose (Fingerstick) 171 mg/dL (70-99) 197 mg/dL (70-99) White Blood Count 12.0 x10^3/uL (4.0-11.0) Red Blood Count 3.85 x10^6/uL (3.50-5.40) Hemoglobin 12.1 g/dL (12.0-15.5) Hematocrit 36.4 % (36.0-47.0) Mean Corpuscular Volume 95 fL (79-100) Mean Corpuscular Hemoglobin 31 pg (25-35) Mean Corpuscular Hemoglobin Concent 33 g/dL (31-37) Red Cell Distribution Width 14.0 % (11.5-14.5) Platelet Count 258 x10^3/uL (140-400) Neutrophils (%) (Auto) 77 % (31-73) Lymphocytes (%) (Auto) 14 % (24-48) Monocytes (%) (Auto) 8 % (0-9) Eosinophils (%) (Auto) 0 % (0-3) Basophils (%) (Auto) 0 % (0-3) Neutrophils # (Auto) 9.3 x10^3/uL (1.8-7.7) Lymphocytes # (Auto) 1.7 x10^3/uL (1.0-4.8) Monocytes # (Auto) 1.0 x10^3/uL (0.0-1.1) Eosinophils # (Auto) 0.0 x10^3/uL (0.0-0.7) Basophils # (Auto) 0.0 x10^3/uL (0.0-0.2) Sodium Level 141 mmol/L (136-145) Potassium Level 3.4 mmol/L (3.5-5.1) Chloride Level 102 mmol/L (98-107) Carbon Dioxide Level 23 mmol/L (21-32) Anion Gap 16 (6-14) Blood Urea Nitrogen 18 mg/dL (7-20) Creatinine 0.8 mg/dL (0.6-1.0) Estimated GFR (Cockcroft-Gault) 90.8 Glucose Level 115 mg/dL (70-99) Calcium Level 9.6 mg/dL (8.5-10.1) Test 02/25/22 07:34 02/25/22 11:52 Glucose (Fingerstick) 118 mg/dL (70-99) 197 mg/dL (70-99) Assessment and Plan Assessmemt and Plan Problems Medical Problems: (1) Back pain Status: Acute (2) Exertional dyspnea Status: Acute (3) Hypoxia Status: Acute (4) Large pleural effusion Status: Acute (5) Left lower lobe pneumonia Status: Acute Comment Review of Relevant I have reviewed the following items becca (where applicable) has been applied. Medications: Current Medications Medications (Trade) Dose Ordered Sig/Jesenia Route PRN Reason Start Time Stop Time Status Last Admin Dose Admin Doxycycline Hyclate (Vibra-Tab) 100 mg BID PO 02/24/22 21:00 02/25/22 08:54 Fentanyl Citrate (Fentanyl 2ml Vial) 100 mcg 1X ONCE IV 02/24/22 15:15 02/24/22 15:18 DC 02/24/22 15:11 Justifications for Admission Other Justification LYDIA WHITEHEAD MD February 25, 2022 12:14
[2022-02-25] MEDS: PIPERACILLIN/TAZOBACTAM 4.5 GM in IV DEXTROSE 5% 100ML 100 ML IV SCH ×2 (13:47→17:44)
--- NOTE | 2022-02-25 13:50 | EKG ---
[facility] [address] [place] [address] Test Date: 2022-02-25 Test Time: 12:19:47 Pat Name: GONZALES LLAMAS Department: Room: 530 1 Gender: F [employer]: MARK : 1970 Requested By: MARILYN LOPEZ Order Number: [id number] Reading MD: Robert Guillermo MD Measurements Intervals [place] Rate: 100 P: 48 MI: 158 QRS: 15 QRSD: 96 T: 19 QT: 374 QTc: 486 Interpretive Statements SINUS RHYTHM VENTRICULAR PREMATURE COMPLEX(ES) MILD QT PROLONGATION Electronically Signed On 02-27-2022 15:39:54 CDT by Robert Guillermo MD
--- NOTE | 2022-02-25 14:53 | RAD ---
CT THORAX WO History: Empyema Technique: Noncontrast CT of the chest was performed. Coronal and sagittal reconstructions were perfo rmed. Exposure: One or more of the following individualized dose reduction techniques were utilized for thi s examination: 1. Automated exposure control 2. Adjustment of the mA and/or kV according to patient size 3. Use of iterative reconstruction technique. Comparison: CT February 23, 2022 Findings: Chest: Interval placement left basilar pigtail pleural drain. Mildly decreased loculated fluid within the region of the drain. Unchanged additional loculated components within the mid to superior aspect posteriorly and laterally basilar aspect. Partial left lower lobe atelectasis, slightly improved com pared to prior. Increased left anterior upper lobe linear atelectasis. No pneumothorax. Partial right lower lobe atelectasis, unchanged. Small mediastinal lymph nodes. Mildly prominent bilateral axillary lymph nodes, similar compared to p rior. Scattered calcified pulmonary nodules, likely prior granulomatous disease. No coronary artery c alcifications. Upper abdomen: The imaged upper abdomen is unremarkable. Bones: No pathologic osseous lesions. Impression: 1. Interval placement left pigtail pleural drain with decreased loculated fluid in the region of the drain. 2. Additional loculated components of the empyema superiorly and anteriorly, similar compared to manoj or. 3. Decreased left lower lobe atelectasis. 4. Increased mild left upper lobe linear atelectasis. 5. Unchanged mildly enlarged right axillary lymph nodes. Electronically signed by: Yoshi Villalba DO (02/25/2022 2:51 PM) [id number]
[2022-02-25 15:00] VITALS: BP 102/63
[2022-02-25 19:00] VITALS: BP 132/70
[2022-02-25] MEDS ORDERED: cefTRIAXone IV Push 1 GM VIAL. IVP SCH (21:00)
--- NOTE | 2022-02-25 21:21 | CONS ---
DATE OF CONSULTATION: 02/25/2022 REQUESTING PHYSICIAN: Dr. Renteria. REASON FOR CONSULTATION: Empyema and blood culture positive. HISTORY OF PRESENT ILLNESS: This is a 51-year-old -Greek female who has been sick for more than a month, who eventually came in. The patient was found to have pneumonia with left loculated effusion. The patient underwent chest tube placement. The patient is currently on Zosyn. Blood culture turned positive, hence consultation. The patient says she is feeling better. Denies any nausea, vomiting, or diarrhea. Denies any chest pain, shortness of breath, abdominal pain, urinary symptoms, fever or chills. The patient has been having sweating before she came in. Her vitals are stable. Her cultures have been negative from the pleural fluid and blood culture has 1/3 gram-positive cocci. PAST MEDICAL HISTORY: Positive for obesity, hypertension, diabetes mellitus, history of depression and has had in the past. SOCIAL HISTORY: Negative for smoking, alcohol, or illicit drug use. ALLERGIES: No known drug allergies. CURRENT MEDICATIONS: Reviewed. REVIEW OF SYSTEMS: As in HPI. All other systems reviewed and are negative. PHYSICAL EXAMINATION: GENERAL: Alert, oriented female, not in any distress. VITAL SIGNS: Stable. Afebrile. HEENT: NC/AT. NECK: Supple. No JVP. No lymphadenopathy. LUNGS: Clear. HEART: S1, S2, regular. ABDOMEN: Soft, nontender. No organomegaly. EXTREMITIES: No edema or cyanosis. SKIN: Unremarkable. NEUROLOGIC: The patient is alert, awake, and appropriate. No focal neurologic deficit. LABORATORY DATA: White count is down from 19,000 to 12,000. BUN and creatinine are normal. Pleural fluid is showing pH of 7.29, nucleated cells 550, 96% polys. Culture so far negative. COVID negative. Blood culture as I mentioned. Chest x-ray and chest CT reviewed. The repeat CT is pending. IMPRESSION: 1. Left-sided empyema, status post chest tube drainage. 2. Blood culture positive 1/3, gram-positive cocci, most likely to be contaminant. 3. Pneumonia. 4. Obesity. 5. Diabetes. 6. Hypertension. RECOMMENDATIONS: Continue Zosyn. No need for vancomycin unless more bottles turned positive. Supportive care and we will continue to follow. Thank you very much, Dr. Renteria, for giving me opportunity to participate in this patient's care. SHAI/BEV DR: SHAI/luis TID: [id number]
[2022-02-25] MEDS: ATORVASTATIN CALCIUM 40 MG TABLET. PO SCH (21:24)
[2022-02-25 23:02] VITALS: BP 133/64
[2022-02-26] MEDS: PIPERACILLIN/TAZOBACTAM 4.5 GM in IV DEXTROSE 5% 100ML 100 ML IV SCH ×4 (01:09→18:06)
[2022-02-26 03:00] VITALS: BP 125/71
[2022-02-26 07:00] VITALS: BP 136/79
[2022-02-26] MEDS: IPRATRPIUM/ALBUTEROL 0.5/2.5MG 3 ML NEBU. NEB SCH ×4 (07:28→21:09)
[2022-02-26] MEDS: oxyCODONE/APAP 5/325 1 TAB TABLET PO PRN (08:22)
[2022-02-26] MEDS: DOXYCYCLINE HYCLATE 100 MG TABLET PO SCH ×2 (08:30→22:30)
[2022-02-26] MEDS: LACTOBACILLUS RHAMNOSUS GG 1 CAPSULE. PO SCH ×2 (08:30→22:30)
[2022-02-26] MEDS: CYCLOBENZAPRINE 10 MG TABLET. PO SCH ×2 (08:30→22:30)
[2022-02-26] MEDS: ASPIRIN CHEWABLE 81 MG TABLET. PO SCH (08:30)
--- NOTE | 2022-02-26 08:30 | RAD ---
XR CHEST 1V History: Reason: Pleural fluid / Spl. Instructions: / History: Comparison: February 25, 2022 Findings: Unchanged left basilar pigtail pleural drain. Loculated left pleural effusion, decreased compared to prior. Decreased patchy left upper and mid lung opacities. Increased mild right basilar patchy opacit y. Small right pleural effusion new compared to prior. Unchanged heart size. No pneumothorax. Impression: 1. New small right pleural effusion with adjacent atelectasis. 2. Decreased loculated left pleural effusion. Stable left basilar pleural drain. 3. Decreased patchy left lung opacities. Electronically signed by: Yoshi Villalba DO (02/26/2022 8:28 AM) [id number]
[2022-02-26] MEDS: EMPAGLIFLOZIN 25 MG TABLET. PO SCH (08:31)
[2022-02-26] MEDS: hydroCHLOROthiazide 12.5 MG TABLET PO SCH (08:32)
[2022-02-26] MEDS: buPROPion XL 150 MG TAB.ER.24H. PO SCH (08:32)
[2022-02-26] MEDS: LOSARTAN POTASSIUM 50 MG TABLET. PO SCH (08:32)
[2022-02-26] MEDS: ENOXAPARIN 40 MG/0.4 ML SYRINGE. SQ SCH (08:33)
[2022-02-26] MEDS: INSULIN LISPRO 300 UNITS/3 ML VIAL. SQ SCH ×3 (08:39→18:21)
--- NOTE | 2022-02-26 09:01 | PDOC ---
PULMONARY PROGRESS NOTES DATE: 02/26/22 TIME: 08:58 Subjective Status post left chest tube. Feels better., not more short of air. Cough mostly nonproductive No significant drainage from the chest tube. Vitals Vital Signs Date Time Temp Pulse Resp B/P (MAP) Pulse Ox O2 Delivery O2 Flow Rate FiO2 02/26/22 08:32 103 136/79 02/26/22 07:28 100 Nasal Cannula 2.0 02/26/22 07:00 98.5 20 98.5 ROS: No Nausea, No Chest Pain, No Abdominal Pain, No Increase Cough General: Alert, No acute distress Lungs: Other (decreased throughout, left lung) Cardiovascular: S2 Abdomen: Soft Neuro Exam: Alert Extremities: No Edema Skin: Warm Labs Laboratory Tests Test 02/24/22 12:02 02/24/22 14:30 02/24/22 16:27 02/24/22 20:34 Glucose (Fingerstick) 194 mg/dL (70-99) 171 mg/dL (70-99) 197 mg/dL (70-99) Body Fluid Source Pleural Body Fluid Color Yellow Body Fluid Clarity Clear Body Fluid pH 7.29 Body Fluid Nucleated Cells 550 /cmm (Not Established) Body Fluid Mononuclear WBCs (%) 4 % Body Fluid Polymorphonuclear Cells 96 % Body Fluid Total RBCs Counted 350 /cmm (Not Established) Test 02/25/22 05:55 02/25/22 07:34 02/25/22 11:52 02/25/22 16:56 White Blood Count 12.0 x10^3/uL (4.0-11.0) Red Blood Count 3.85 x10^6/uL (3.50-5.40) Hemoglobin 12.1 g/dL (12.0-15.5) Hematocrit 36.4 % (36.0-47.0) Mean Corpuscular Volume 95 fL (79-100) Mean Corpuscular Hemoglobin 31 pg (25-35) Mean Corpuscular Hemoglobin Concent 33 g/dL (31-37) Red Cell Distribution Width 14.0 % (11.5-14.5) Platelet Count 258 x10^3/uL (140-400) Neutrophils (%) (Auto) 77 % (31-73) Lymphocytes (%) (Auto) 14 % (24-48) Monocytes (%) (Auto) 8 % (0-9) Eosinophils (%) (Auto) 0 % (0-3) Basophils (%) (Auto) 0 % (0-3) Neutrophils # (Auto) 9.3 x10^3/uL (1.8-7.7) Lymphocytes # (Auto) 1.7 x10^3/uL (1.0-4.8) Monocytes # (Auto) 1.0 x10^3/uL (0.0-1.1) Eosinophils # (Auto) 0.0 x10^3/uL (0.0-0.7) Basophils # (Auto) 0.0 x10^3/uL (0.0-0.2) Sodium Level 141 mmol/L (136-145) Potassium Level 3.4 mmol/L (3.5-5.1) Chloride Level 102 mmol/L (98-107) Carbon Dioxide Level 23 mmol/L (21-32) Anion Gap 16 (6-14) Blood Urea Nitrogen 18 mg/dL (7-20) Creatinine 0.8 mg/dL (0.6-1.0) Estimated GFR (Cockcroft-Gault) 90.8 Glucose Level 115 mg/dL (70-99) Calcium Level 9.6 mg/dL (8.5-10.1) Glucose (Fingerstick) 118 mg/dL (70-99) 197 mg/dL (70-99) 215 mg/dL (70-99) Test 02/25/22 21:10 02/26/22 07:15 Glucose (Fingerstick) 212 mg/dL (70-99) 168 mg/dL (70-99) Laboratory Tests Test 02/25/22 11:52 02/25/22 16:56 02/25/22 21:10 02/26/22 07:15 Glucose (Fingerstick) 197 mg/dL (70-99) 215 mg/dL (70-99) 212 mg/dL (70-99) 168 mg/dL (70-99) Medications Active Scripts Medications Dose Route/Sig Max Daily Dose Days Date Category Orphenadrine Citrate 100 Mg Tablet.er 1 Tab PO BID 02/20/[address] chest 02/25/2022 reviewed Impression: 1. Interval placement left pigtail pleural drain with decreased loculated fluid in the region of the drain. 2. Additional loculated components of the empyema superiorly and anteriorly, similar compared to prior. 3. Decreased left lower lobe atelectasis. 4. Increased mild left upper lobe linear atelectasis. 5. Unchanged mildly enlarged right axillary lymph nodes. Electronically signed by: Yoshi Villalba DO (02/25/2022 2:51 PM) [id number] Impression . Abnormal CT chest with multiloculated left lung effusion. Pneumonia with suspected parapneumonic effusion. Status post left chest tube Type 2 diabetes Leukocytosis Plan . Plan Repeat CT chest reviewed. Loculated fluid is decreased at the chest tube insertion site however there are other pockets of loculated effusions. She would benefit from tPA via chest tube. Discussed with the patient she agrees to proceed with it.. Empiric antibiotics. Zosyn./doxycycline. Routine analysis of pleural fluid, including microbiology and cytology. pH is 7.29 Monitor blood sugars Discussed with Dr. Renteria. IMAN BEACH MD February 26, 2022 09:01
[2022-02-26] MEDS ORDERED: LIDOCAINE 1% IPL ONE (09:30)
[2022-02-26] MEDS ORDERED: ALTEPLASE IPL ONE (09:30)
[2022-02-26] MEDS ORDERED: TOTAL VOLUME IPL ONE (09:30)
[2022-02-26 11:00] VITALS: BP 108/66
--- NOTE | 2022-02-26 11:10 | OP ---
DATE OF SURGERY: 02/26/2022 PROCEDURE: Fibrinolysis. INDICATION: Empyema. DESCRIPTION OF PROCEDURE: Informed consent was obtained from the patient. She agreed to proceed with the procedure. A 5 mg of TPA mixed with 10 mL of 1% lidocaine was introduced into the left pleural space. The patient tolerated the procedure well. The chest tube will be clamped for 1 hour. The patient will be rotated every 15 minutes to different positions. Instructions were given to the nurse. We will unclamp the chest tube after [address]: Isi TID: [id number]
[2022-02-26] MEDS: MORPHINE SULFATE 4 MG/ML INJ. IV PRN (11:52)
--- NOTE | 2022-02-26 12:58 | PDOC ---
[facility] PROGRESS NOTE Date of Service DOS: DATE: 02/26/22 TIME: 12:56 Chief Complaint Chief Complaint Pneumonia and left pleural effusion. The patient will be admitted. We will start IV antibiotics, breathing treatments, oxygen. Consult Pulmonary, consult Interventional Radiology to consider left thoracentesis. Deep venous thrombosis prophylaxis. Full code. History of Present Illness History of Present Illness 02/26: Chest tube in place. She denies any worsening shortness of breath. Discussed with Dr. Rees, she would likely benefit from tPA via chest tube. ID has been consulted for gram-positive cocci in 1 of 3 bottles. Continue Zosyn. 02/25: Patient feels much better with chest tube in place. No worsening shortness of breath. She did have gram-positive cocci in 1 of 3 bottles. I have increase Rocephin to [address] consultation to ID. 02/24: Patient seen and evaluated. She states she is breathing much better with chest tube and removal of fluid. Still breathing on 2 L nasal cannula. Continue current IV antibiotics we will continue to wean oxygen as tolerated. 02/23 Patient evaluated examined at bedside. Resting in bed on nasal cannula still some shortness of breath. Discussed with patient and son at bedside at great length regarding plan of care. Continue IV antibiotics. Possible thoracentesis tomorrow. Pulmonary recommendations reviewed. Discussed with bedside RN. Vitals/I&O Vitals/I&O: Vital Signs Date Time Temp Pulse Resp B/P (MAP) Pulse Ox O2 Delivery O2 Flow Rate FiO2 02/26/22 11:27 98 Nasal Cannula 2.0 02/26/22 11:00 98.5 97 20 108/66 (80) 98.5 I & O 02/25/22 02/25/22 02/26/22 15:00 23:00 07:00 Intake Total 240 ml 440 ml 400 ml Output Total 10 ml 2005 ml Balance 240 ml 430 ml -1605 ml Physical Exam General: Alert, Oriented X3, Cooperative Heart: Regular rate, Normal S1, Normal S2 Lungs: Other (decreased throughout, left lung) Abdomen: Normal bowel sounds, Soft, No tenderness Extremities: No edema, Normal pulses Skin: No significant lesion Labs Labs: Laboratory Tests Test 02/25/22 16:56 02/25/22 21:10 02/26/22 07:15 02/26/22 11:11 Glucose (Fingerstick) 215 mg/dL (70-99) 212 mg/dL (70-99) 168 mg/dL (70-99) 130 mg/dL (70-99) Assessment and Plan Assessmemt and Plan Problems Medical Problems: (1) Back pain Status: Acute (2) Exertional dyspnea Status: Acute (3) Hypoxia Status: Acute (4) Large pleural effusion Status: Acute (5) Left lower lobe pneumonia Status: Acute Comment Review of Relevant I have reviewed the following items becca (where applicable) has been applied. Medications: Current Medications Medications (Trade) Dose Ordered Sig/Jesenia Route PRN Reason Start Time Stop Time Status Last Admin Dose Admin Alteplase, Recombinant 5 mg/ Lidocaine HCl 10 ml/Miscellaneous 60 ml @ 120 mls/hr 1X ONCE IPL 02/26/22 09:30 02/26/22 09:59 DC 02/26/22 11:07 Justifications for Admission Other Justification YLDIA WHITEHEAD MD February 26, 2022 12:58
--- NOTE | 2022-02-26 13:43 | PDOC ---
Infectious Disease Note Subjective Subjective pt is feeling ok ROS ROS no n/v/d/ Vital Sign Vital Signs Vital Signs Date Time Temp Pulse Resp B/P (MAP) Pulse Ox O2 Delivery O2 Flow Rate FiO2 02/26/22 11:27 98 Nasal Cannula 2.0 02/26/22 11:00 98.5 97 20 108/66 (80) 98.5 Physical Exam PHYSICAL EXAM GENERAL: Alert, oriented female, not in any distress. VITAL SIGNS: Stable. Afebrile. HEENT: NC/AT. NECK: Supple. No JVP. No lymphadenopathy. LUNGS: Clear. HEART: S1, S2, regular. ABDOMEN: Soft, nontender. No organomegaly. EXTREMITIES: No edema or cyanosis. SKIN: Unremarkable. NEUROLOGIC: The patient is alert, awake, and appropriate. No focal neurologic deficit. Labs Lab Laboratory Tests Test 02/25/22 16:56 02/25/22 21:10 02/26/22 07:15 02/26/22 11:11 Glucose (Fingerstick) 215 mg/dL (70-99) 212 mg/dL (70-99) 168 mg/dL (70-99) 130 mg/dL (70-99) Micro BC 1/3 FINAL ID= [id number] [id number] pleural fluid culture neg so far Objective Assessment IMPRESSION: 1. Left-sided empyema, status post chest tube drainage. 2. Blood culture positive 1/3, gram-positive cocci, most likely to be contaminant. 3. Pneumonia. 4. Obesity. 5. Diabetes. 6. Hypertension. Plan Plan of Care cont antibiotics cont chest tube support LETY QUIGLEY MD February 26, 2022 13:43
[2022-02-26 15:00] VITALS: BP 119/63
[2022-02-26] MEDS ORDERED: MORPHINE SULFATE 4 MG/ML INJ. IV PRN (18:45)
[2022-02-26 19:00] VITALS: BP 126/82
[2022-02-26] MEDS: ATORVASTATIN CALCIUM 40 MG TABLET. PO SCH (22:30)
[2022-02-26] MEDS: IBUPROFEN 400 MG TABLET. PO PRN (22:30)
[2022-02-26 23:16] VITALS: BP 128/62
[2022-02-27] MEDS: PIPERACILLIN/TAZOBACTAM 4.5 GM in IV DEXTROSE 5% 100ML 100 ML IV SCH ×4 (01:02→18:34)
[2022-02-27 03:00] VITALS: BP 109/60
[2022-02-27 07:00] VITALS: BP 126/73
[2022-02-27] MEDS: IPRATRPIUM/ALBUTEROL 0.5/2.5MG 3 ML NEBU. NEB SCH ×4 (07:37→20:00)
[2022-02-27 07:54] LABS: BASO # 0.1 x10^3/uL (0.0-0.2); BASO % 1 % (0-3); EOS # 0.1 x10^3/uL (0.0-0.7); EOS % 1 % (0-3); HEMATOCRIT 37.5 % (36.0-47.0); HEMOGLOBIN 12.7 g/dL (12.0-15.5); LYMPH # 2.1 x10^3/uL (1.0-4.8); LYMPH % 17 % (24-48); MEAN CORPUSCULAR HEMOGLOBIN 32 pg (25-35); MEAN CORPUSCULAR HGB CONC 34 g/dL (31-37); MEAN CORPUSCULAR VOLUME 93 fL (79-100); MONO # 0.9 x10^3/uL (0.0-1.1); MONO % 8 % (0-9); NEUT # 8.9 x10^3/uL (1.8-7.7); NEUT % 74 % (31-73); PLATELET COUNT 319 x10^3/uL (140-400); RED BLOOD COUNT 4.02 x10^6/uL (3.50-5.40); RED CELL DISTRIBUTION WIDTH 14.1 % (11.5-14.5); WHITE BLOOD COUNT 12.1 x10^3/uL (4.0-11.0)
[2022-02-27] MEDS: INSULIN LISPRO 300 UNITS/3 ML VIAL. SQ SCH ×3 (08:00→17:00)
[2022-02-27 08:17] LABS: CALCIUM 10.2 mg/dL (8.5-10.1); GFR 70.2; POTASSIUM 3.4 mmol/L (3.5-5.1)
[2022-02-27] MEDS: LACTOBACILLUS RHAMNOSUS GG 1 CAPSULE. PO SCH ×2 (09:02→20:50)
[2022-02-27] MEDS: CYCLOBENZAPRINE 10 MG TABLET. PO SCH ×2 (09:02→20:50)
[2022-02-27] MEDS: hydroCHLOROthiazide 12.5 MG TABLET PO SCH (09:02)
[2022-02-27] MEDS: EMPAGLIFLOZIN 25 MG TABLET. PO SCH (09:02)
[2022-02-27] MEDS: DOXYCYCLINE HYCLATE 100 MG TABLET PO SCH ×2 (09:03→20:50)
[2022-02-27] MEDS: LOSARTAN POTASSIUM 50 MG TABLET. PO SCH (09:03)
[2022-02-27] MEDS: buPROPion XL 150 MG TAB.ER.24H. PO SCH (09:04)
[2022-02-27] MEDS: ASPIRIN CHEWABLE 81 MG TABLET. PO SCH (09:04)
[2022-02-27] MEDS: ENOXAPARIN 40 MG/0.4 ML SYRINGE. SQ SCH (09:06)
--- NOTE | 2022-02-27 10:18 | RAD ---
XR CHEST 1V History: Reason: Pleural fluid / Spl. Instructions: / History: Comparison: February 26, 2022 Findings: Unchanged left pigtail pleural drain. Unchanged loculated small left pleural effusion. Patchy left mi d and basilar opacities, unchanged. Mild right basilar linear atelectasis. Unchanged heart size. No p neumothorax. Impression: 1. Unchanged loculated left pleural effusion with adjacent opacities. Stable left pleural drain. 2. Increased mild right basilar linear atelectasis. Electronically signed by: Yoshi Villalba DO (02/27/2022 10:16 AM) [id number]
--- NOTE | 2022-02-27 10:52 | PDOC ---
PULMONARY PROGRESS NOTES DATE: 02/27/22 TIME: 10:50 Subjective Status post left chest tube. Status post tPA to the left chest tube. Patient feels much better. 500 cc of fluid came out. Vitals Vital Signs Date Time Temp Pulse Resp B/P (MAP) Pulse Ox O2 Delivery O2 Flow Rate FiO2 02/27/22 09:03 108 126/73 02/27/22 08:00 Nasal Cannula 2.0 02/27/22 07:37 99 02/27/22 07:00 97.5 20 97.5 ROS: No Nausea, No Chest Pain, No Abdominal Pain, No Increase Cough General: Alert, No acute distress Lungs: Other (decreased throughout, left lung) Cardiovascular: S2 Abdomen: Soft Neuro Exam: Alert Extremities: No Edema Skin: Warm Labs Laboratory Tests Test 02/25/22 11:52 02/25/22 16:56 02/25/22 21:10 02/26/22 07:15 Glucose (Fingerstick) 197 mg/dL (70-99) 215 mg/dL (70-99) 212 mg/dL (70-99) 168 mg/dL (70-99) Test 02/26/22 11:11 02/26/22 14:11 02/26/22 16:56 02/26/22 19:48 Glucose (Fingerstick) 130 mg/dL (70-99) 165 mg/dL (70-99) 214 mg/dL (70-99) 240 mg/dL (70-99) Test 02/27/22 07:30 02/27/22 07:45 White Blood Count 12.1 x10^3/uL (4.0-11.0) Red Blood Count 4.02 x10^6/uL (3.50-5.40) Hemoglobin 12.7 g/dL (12.0-15.5) Hematocrit 37.5 % (36.0-47.0) Mean Corpuscular Volume 93 fL (79-100) Mean Corpuscular Hemoglobin 32 pg (25-35) Mean Corpuscular Hemoglobin Concent 34 g/dL (31-37) Red Cell Distribution Width 14.1 % (11.5-14.5) Platelet Count 319 x10^3/uL (140-400) Neutrophils (%) (Auto) 74 % (31-73) Lymphocytes (%) (Auto) 17 % (24-48) Monocytes (%) (Auto) 8 % (0-9) Eosinophils (%) (Auto) 1 % (0-3) Basophils (%) (Auto) 1 % (0-3) Neutrophils # (Auto) 8.9 x10^3/uL (1.8-7.7) Lymphocytes # (Auto) 2.1 x10^3/uL (1.0-4.8) Monocytes # (Auto) 0.9 x10^3/uL (0.0-1.1) Eosinophils # (Auto) 0.1 x10^3/uL (0.0-0.7) Basophils # (Auto) 0.1 x10^3/uL (0.0-0.2) Sodium Level 143 mmol/L (136-145) Potassium Level 3.4 mmol/L (3.5-5.1) Chloride Level 100 mmol/L (98-107) Carbon Dioxide Level 28 mmol/L (21-32) Anion Gap 15 (6-14) Blood Urea Nitrogen 16 mg/dL (7-20) Creatinine 1.0 mg/dL (0.6-1.0) Estimated GFR (Cockcroft-Gault) 70.2 Glucose Level 158 mg/dL (70-99) Calcium Level 10.2 mg/dL (8.5-10.1) Glucose (Fingerstick) 145 mg/dL (70-99) Laboratory Tests Test 02/26/22 11:11 02/26/22 14:11 02/26/22 16:56 02/26/22 19:48 Glucose (Fingerstick) 130 mg/dL (70-99) 165 mg/dL (70-99) 214 mg/dL (70-99) 240 mg/dL (70-99) Test 02/27/22 07:30 02/27/22 07:45 White Blood Count 12.1 x10^3/uL (4.0-11.0) Red Blood Count 4.02 x10^6/uL (3.50-5.40) Hemoglobin 12.7 g/dL (12.0-15.5) Hematocrit 37.5 % (36.0-47.0) Mean Corpuscular Volume 93 fL (79-100) Mean Corpuscular Hemoglobin 32 pg (25-35) Mean Corpuscular Hemoglobin Concent 34 g/dL (31-37) Red Cell Distribution Width 14.1 % (11.5-14.5) Platelet Count 319 x10^3/uL (140-400) Neutrophils (%) (Auto) 74 % (31-73) Lymphocytes (%) (Auto) 17 % (24-48) Monocytes (%) (Auto) 8 % (0-9) Eosinophils (%) (Auto) 1 % (0-3) Basophils (%) (Auto) 1 % (0-3) Neutrophils # (Auto) 8.9 x10^3/uL (1.8-7.7) Lymphocytes # (Auto) 2.1 x10^3/uL (1.0-4.8) Monocytes # (Auto) 0.9 x10^3/uL (0.0-1.1) Eosinophils # (Auto) 0.1 x10^3/uL (0.0-0.7) Basophils # (Auto) 0.1 x10^3/uL (0.0-0.2) Sodium Level 143 mmol/L (136-145) Potassium Level 3.4 mmol/L (3.5-5.1) Chloride Level 100 mmol/L (98-107) Carbon Dioxide Level 28 mmol/L (21-32) Anion Gap 15 (6-14) Blood Urea Nitrogen 16 mg/dL (7-20) Creatinine 1.0 mg/dL (0.6-1.0) Estimated GFR (Cockcroft-Gault) 70.2 Glucose Level 158 mg/dL (70-99) Calcium Level 10.2 mg/dL (8.5-10.1) Glucose (Fingerstick) 145 mg/dL (70-99) Medications Active Scripts Medications Dose Route/Sig Max Daily Dose Days Date Category Orphenadrine Citrate 100 Mg Tablet.er 1 Tab PO BID 02/20/22 Rx Comments Chest x-ray reviewed 02/27/2022. There is improved aeration of the left base. CT chest 02/25/2022 reviewed Impression: 1. Interval placement left pigtail pleural drain with decreased loculated fluid in the region of the drain. 2. Additional loculated components of the empyema superiorly and anteriorly, similar compared to prior. 3. Decreased left lower lobe atelectasis. 4. Increased mild left upper lobe linear atelectasis. 5. Unchanged mildly enlarged right axillary lymph nodes. Electronically signed by: Yoshi Villalba DO (02/25/2022 2:51 PM) [id number] Impression . Abnormal CT chest with multiloculated left lung effusion. Pneumonia complicated with empyema left lung. Status post left chest tube. pH 7.2. Status post left tPA 02/26/2022. 500 cc fluid came out. She feels clinically better chest x-ray improving Type 2 diabetes Leukocytosis Plan . Patient is status post 1 dose of tPA via chest tube. Radiographically improving. Clinically better as well. Will monitor chest x-ray. Hold off on further tPA. Repeat CT chest reviewed. Loculated fluid is decreased at the chest tube insertion site however there are other pockets of loculated effusions. Empiric antibiotics. Zosyn./doxycycline. Routine analysis of pleural fluid, including microbiology and cytology. pH is 7.29 Monitor blood sugars Discussed with Dr. Renteria. IMAN BEACH MD February 27, 2022 10:52
[2022-02-27 11:00] VITALS: BP 120/75
--- NOTE | 2022-02-27 11:50 | PDOC ---
[facility] PROGRESS NOTE Date of Service DOS: DATE: 02/27/22 TIME: 11:49 Chief Complaint Chief Complaint Pneumonia and left pleural effusion. The patient will be admitted. We will start IV antibiotics, breathing treatments, oxygen. Consult Pulmonary, consult Interventional Radiology to consider left thoracentesis. Deep venous thrombosis prophylaxis. Full code. History of Present Illness History of Present Illness 02/27: Afebrile. No worsening shortness of breath. Feels much better after insertion of tPA in the chest tube yesterday. Some complaints of constipation, but patient not willing to try any pharmacological measures. She is wanting to get up and walk around. Continue IV Zosyn, per ID. 02/26: Chest tube in place. She denies any worsening shortness of breath. Discussed with Dr. Rees, she would likely benefit from tPA via chest tube. ID has been consulted for gram-positive cocci in 1 of 3 bottles. Continue Zosyn. 02/25: Patient feels much better with chest tube in place. No worsening shortness of breath. She did have gram-positive cocci in 1 of 3 bottles. I have increase Rocephin to [address] consultation to ID. 02/24: Patient seen and evaluated. She states she is breathing much better with chest tube and removal of fluid. Still breathing on 2 L nasal cannula. Continue current IV antibiotics we will continue to wean oxygen as tolerated. 02/23 Patient evaluated examined at bedside. Resting in bed on nasal cannula still some shortness of breath. Discussed with patient and son at bedside at great length regarding plan of care. Continue IV antibiotics. Possible thoracentesis tomorrow. Pulmonary recommendations reviewed. Discussed with bedside RN. Vitals/I&O Vitals/I&O: Vital Signs Date Time Temp Pulse Resp B/P (MAP) Pulse Ox O2 Delivery O2 Flow Rate FiO2 02/27/22 09:03 108 126/73 02/27/22 08:00 Nasal Cannula 2.0 02/27/22 07:37 99 02/27/22 07:00 97.5 20 97.5 I & O 02/26/22 02/26/22 02/27/22 15:00 23:00 07:00 Intake Total 480 ml Output Total 515 ml 100 ml Balance 480 ml -515 ml -100 ml Physical Exam Physical Exam: GENERAL: Alert, oriented female, not in any distress. VITAL SIGNS: Stable. Afebrile. HEENT: NC/AT. NECK: Supple. No JVP. No lymphadenopathy. LUNGS: Clear. HEART: S1, S2, regular. ABDOMEN: Soft, nontender. No organomegaly. EXTREMITIES: No edema or cyanosis. SKIN: Unremarkable. NEUROLOGIC: The patient is alert, awake, and appropriate. No focal neurologic deficit. General: Alert, Oriented X3, Cooperative Heart: Regular rate, Normal S1, Normal S2 Lungs: Other (decreased throughout, left lung) Abdomen: Normal bowel sounds, Soft, No tenderness Extremities: No edema, Normal pulses Skin: No significant lesion Labs Labs: Laboratory Tests Test 02/26/22 14:11 02/26/22 16:56 02/26/22 19:48 02/27/22 07:30 Glucose (Fingerstick) 165 mg/dL (70-99) 214 mg/dL (70-99) 240 mg/dL (70-99) White Blood Count 12.1 x10^3/uL (4.0-11.0) Red Blood Count 4.02 x10^6/uL (3.50-5.40) Hemoglobin 12.7 g/dL (12.0-15.5) Hematocrit 37.5 % (36.0-47.0) Mean Corpuscular Volume 93 fL (79-100) Mean Corpuscular Hemoglobin 32 pg (25-35) Mean Corpuscular Hemoglobin Concent 34 g/dL (31-37) Red Cell Distribution Width 14.1 % (11.5-14.5) Platelet Count 319 x10^3/uL (140-400) Neutrophils (%) (Auto) 74 % (31-73) Lymphocytes (%) (Auto) 17 % (24-48) Monocytes (%) (Auto) 8 % (0-9) Eosinophils (%) (Auto) 1 % (0-3) Basophils (%) (Auto) 1 % (0-3) Neutrophils # (Auto) 8.9 x10^3/uL (1.8-7.7) Lymphocytes # (Auto) 2.1 x10^3/uL (1.0-4.8) Monocytes # (Auto) 0.9 x10^3/uL (0.0-1.1) Eosinophils # (Auto) 0.1 x10^3/uL (0.0-0.7) Basophils # (Auto) 0.1 x10^3/uL (0.0-0.2) Sodium Level 143 mmol/L (136-145) Potassium Level 3.4 mmol/L (3.5-5.1) Chloride Level 100 mmol/L (98-107) Carbon Dioxide Level 28 mmol/L (21-32) Anion Gap 15 (6-14) Blood Urea Nitrogen 16 mg/dL (7-20) Creatinine 1.0 mg/dL (0.6-1.0) Estimated GFR (Cockcroft-Gault) 70.2 Glucose Level 158 mg/dL (70-99) Calcium Level 10.2 mg/dL (8.5-10.1) Test 02/27/22 07:45 Glucose (Fingerstick) 145 mg/dL (70-99) Assessment and Plan Assessmemt and Plan Problems Medical Problems: (1) Back pain Status: Acute (2) Exertional dyspnea Status: Acute (3) Hypoxia Status: Acute (4) Large pleural effusion Status: Acute (5) Left lower lobe pneumonia Status: Acute Comment Review of Relevant I have reviewed the following items becca (where applicable) has been applied. Justifications for Admission Other Justification LYDIA WHITEHEAD MD February 27, 2022 11:50
[2022-02-27] MEDS: oxyCODONE/APAP 5/325 1 TAB TABLET PO PRN (13:40)
[2022-02-27 15:00] VITALS: BP 116/72
[2022-02-27 19:00] VITALS: BP 120/75
[2022-02-27] MEDS ORDERED: IPRATRPIUM/ALBUTEROL 0.5/2.5MG 3 ML NEBU. NEB PRN (20:45)
[2022-02-27] MEDS: ATORVASTATIN CALCIUM 40 MG TABLET. PO SCH (20:50)
[2022-02-27 23:00] VITALS: BP 120/67
[2022-02-28] MEDS: PIPERACILLIN/TAZOBACTAM 4.5 GM in IV DEXTROSE 5% 100ML 100 ML IV SCH ×5 (00:22→23:57)
[2022-02-28 07:00] VITALS: BP 118/65
[2022-02-28] MEDS: INSULIN LISPRO 300 UNITS/3 ML VIAL. SQ SCH ×3 (08:00→17:00)
[2022-02-28] MEDS: buPROPion XL 150 MG TAB.ER.24H. PO SCH (08:55)
[2022-02-28] MEDS: CYCLOBENZAPRINE 10 MG TABLET. PO SCH ×2 (08:55→20:47)
[2022-02-28] MEDS: hydroCHLOROthiazide 12.5 MG TABLET PO SCH (08:55)
[2022-02-28] MEDS: oxyCODONE/APAP 5/325 1 TAB TABLET PO PRN ×2 (08:56→13:00)
[2022-02-28] MEDS: DOXYCYCLINE HYCLATE 100 MG TABLET PO SCH ×2 (08:56→20:47)
[2022-02-28] MEDS: LACTOBACILLUS RHAMNOSUS GG 1 CAPSULE. PO SCH ×2 (08:57→20:47)
[2022-02-28] MEDS: LOSARTAN POTASSIUM 50 MG TABLET. PO SCH (08:57)
[2022-02-28] MEDS: ENOXAPARIN 40 MG/0.4 ML SYRINGE. SQ SCH (08:58)
[2022-02-28] MEDS: ASPIRIN CHEWABLE 81 MG TABLET. PO SCH (08:58)
[2022-02-28] MEDS: EMPAGLIFLOZIN 25 MG TABLET. PO SCH (08:58)
[2022-02-28] MEDS ORDERED: LIDOCAINE 1% IRR ONE (10:00)
[2022-02-28] MEDS ORDERED: STERILE WATER IRR ONE (10:00)
[2022-02-28] MEDS ORDERED: ALTEPLASE IRR ONE (10:00)
--- NOTE | 2022-02-28 10:14 | PDOC ---
PULMONARY PROGRESS NOTES DATE: 02/28/22 TIME: 10:12 Subjective Status post left chest tube. Status post tPA to the left chest tube. Patient feels much better. No further drainage from the chest tube since last 24 hours. Vitals Vital Signs Date Time Temp Pulse Resp B/P (MAP) Pulse Ox O2 Delivery O2 Flow Rate FiO2 02/28/22 08:57 104 118/65 02/28/22 08:56 97 Nasal Cannula 1.5 02/28/22 07:00 98.9 18 98.9 ROS: No Nausea, No Chest Pain, No Abdominal Pain, No Increase Cough General: Alert, No acute distress Lungs: Other (decreased throughout, left lung) Cardiovascular: S2 Abdomen: Soft Neuro Exam: Alert Extremities: No Edema Skin: Warm Labs Laboratory Tests Test 02/26/22 11:11 02/26/22 14:11 02/26/22 16:56 02/26/22 19:48 Glucose (Fingerstick) 130 mg/dL (70-99) 165 mg/dL (70-99) 214 mg/dL (70-99) 240 mg/dL (70-99) Test 02/27/22 07:30 02/27/22 07:45 02/27/22 12:06 02/27/22 16:47 White Blood Count 12.1 x10^3/uL (4.0-11.0) Red Blood Count 4.02 x10^6/uL (3.50-5.40) Hemoglobin 12.7 g/dL (12.0-15.5) Hematocrit 37.5 % (36.0-47.0) Mean Corpuscular Volume 93 fL (79-100) Mean Corpuscular Hemoglobin 32 pg (25-35) Mean Corpuscular Hemoglobin Concent 34 g/dL (31-37) Red Cell Distribution Width 14.1 % (11.5-14.5) Platelet Count 319 x10^3/uL (140-400) Neutrophils (%) (Auto) 74 % (31-73) Lymphocytes (%) (Auto) 17 % (24-48) Monocytes (%) (Auto) 8 % (0-9) Eosinophils (%) (Auto) 1 % (0-3) Basophils (%) (Auto) 1 % (0-3) Neutrophils # (Auto) 8.9 x10^3/uL (1.8-7.7) Lymphocytes # (Auto) 2.1 x10^3/uL (1.0-4.8) Monocytes # (Auto) 0.9 x10^3/uL (0.0-1.1) Eosinophils # (Auto) 0.1 x10^3/uL (0.0-0.7) Basophils # (Auto) 0.1 x10^3/uL (0.0-0.2) Sodium Level 143 mmol/L (136-145) Potassium Level 3.4 mmol/L (3.5-5.1) Chloride Level 100 mmol/L (98-107) Carbon Dioxide Level 28 mmol/L (21-32) Anion Gap 15 (6-14) Blood Urea Nitrogen 16 mg/dL (7-20) Creatinine 1.0 mg/dL (0.6-1.0) Estimated GFR (Cockcroft-Gault) 70.2 Glucose Level 158 mg/dL (70-99) Calcium Level 10.2 mg/dL (8.5-10.1) Glucose (Fingerstick) 145 mg/dL (70-99) 114 mg/dL (70-99) 176 mg/dL (70-99) Test 02/27/22 20:29 02/28/22 07:38 Glucose (Fingerstick) 202 mg/dL (70-99) 132 mg/dL (70-99) Laboratory Tests Test 02/27/22 12:06 02/27/22 16:47 02/27/22 20:29 02/28/22 07:38 Glucose (Fingerstick) 114 mg/dL (70-99) 176 mg/dL (70-99) 202 mg/dL (70-99) 132 mg/dL (70-99) Medications Active Scripts Medications Dose Route/Sig Max Daily Dose Days Date Category Orphenadrine Citrate 100 Mg Tablet.er 1 Tab PO BID 02/20/22 Rx Comments Chest x-ray reviewed 02/27/2022. There is improved aeration of the left base. CT chest 02/25/2022 reviewed Impression: 1. Interval placement left pigtail pleural drain with decreased loculated fluid in the region of the drain. 2. Additional loculated components of the empyema superiorly and anteriorly, similar compared to prior. 3. Decreased left lower lobe atelectasis. 4. Increased mild left upper lobe linear atelectasis. 5. Unchanged mildly enlarged right axillary lymph nodes. Electronically signed by: Yoshi Villalba DO (02/25/2022 2:51 PM) [id number] Impression . abnormal CT chest with multiloculated left lung effusion. Pneumonia complicated with empyema left lung. Status post left chest tube. pH 7.2. Status post left tPA 02/26/2022. 500 cc fluid came out. She feels clinically better chest x-ray improving. No further drainage since last 24 hours. She will benefit from another dose of tPA today. Type 2 diabetes Leukocytosis Plan . Patient is status post 1 dose of tPA via chest tube. Radiographically improving. Clinically better as well. We will repeat the dose of tPA again today Will monitor chest x-ray. Repeat CT chest reviewed. Loculated fluid is decreased at the chest tube insertion site however there are other pockets of loculated effusions. Empiric antibiotics. Zosyn./doxycycline. Routine analysis of pleural fluid, including microbiology and cytology. pH is 7.29 Monitor blood sugars Discussed with Dr. Renteria. IMAN BEACH MD February 28, 2022 10:14
[2022-02-28 11:00] VITALS: BP 149/86
--- NOTE | 2022-02-28 11:24 | OP ---
DATE OF SURGERY: 02/28/2022 PROCEDURE: Fibrinolysis. INDICATIONS: Empyema. DESCRIPTION OF PROCEDURE: Informed consent was obtained from the patient. She agreed to proceed with the procedure. This is a second dose, 5 mg of TPA mixed with sterile water and 10 mL of 1% lidocaine was introduced to the left pleural space. Tube will be clamped for 45 minutes to an hour. The patient will be rotated in different positions. Chest tube will be unclamped and we will follow the chest tube output. DEBORAH DR: Isi TID: [id number]
--- NOTE | 2022-02-28 11:48 | PDOC ---
[facility] PROGRESS NOTE Date of Service DOS: DATE: 02/28/22 TIME: 11:45 Chief Complaint Chief Complaint Pneumonia and left pleural effusion. The patient will be admitted. We will start IV antibiotics, breathing treatments, oxygen. Consult Pulmonary, consult Interventional Radiology to consider left thoracentesis. Deep venous thrombosis prophylaxis. Full code. History of Present Illness History of Present Illness 02/28: Patient ports improvement in shortness of breath, currently breathing on 1 L O2. Chest tube in place. Discussed with pulmonology, will provide additional dose of tPA to further break up loculations. Complains of some constipation today, requesting docusate. 02/27: Afebrile. No worsening shortness of breath. Feels much better after insertion of tPA in the chest tube yesterday. Some complaints of constipation, but patient not willing to try any pharmacological measures. She is wanting to get up and walk around. Continue IV Zosyn, per ID. 02/26: Chest tube in place. She denies any worsening shortness of breath. Discussed with Dr. Rees, she would likely benefit from tPA via chest tube. ID has been consulted for gram-positive cocci in 1 of 3 bottles. Continue Zosyn. 02/25: Patient feels much better with chest tube in place. No worsening shortne ss of breath. She did have gram-positive cocci in 1 of 3 bottles. I have increase Rocephin to [address] consultation to ID. 02/24: Patient seen and evaluated. She states she is breathing much better with chest tube and removal of fluid. Still breathing on 2 L nasal cannula. Continue current IV antibiotics we will continue to wean oxygen as tolerated. 02/23 Patient evaluated examined at bedside. Resting in bed on nasal cannula still some shortness of breath. Discussed with patient and son at bedside at great length regarding plan of care. Continue IV antibiotics. Possible thoracentesis tomorrow. Pulmonary recommendations reviewed. Discussed with bedside RN. Vitals/I&O Vitals/I&O: Vital Signs Date Time Temp Pulse Resp B/P (MAP) Pulse Ox O2 Delivery O2 Flow Rate FiO2 02/28/22 11:29 97 Nasal Cannula 1.0 02/28/22 08:57 104 118/65 02/28/22 07:00 98.9 18 98.9 I & O 02/27/22 02/27/22 02/28/22 15:00 23:00 07:00 Intake Total 120 ml Output Total 50 ml Balance -50 ml 120 ml Physical Exam Physical Exam: GENERAL: Alert, oriented female, not in any distress. VITAL SIGNS: Stable. Afebrile. HEENT: NC/AT. NECK: Supple. No JVP. No lymphadenopathy. LUNGS: Clear. HEART: S1, S2, regular. ABDOMEN: Soft, nontender. No organomegaly. EXTREMITIES: No edema or cyanosis. SKIN: Unremarkable. NEUROLOGIC: The patient is alert, awake, and appropriate. No focal neurologic deficit. General: Alert, Oriented X3, Cooperative Heart: Regular rate, Normal S1, Normal S2 Lungs: Other (decreased throughout, left lung) Abdomen: Normal bowel sounds, Soft, No tenderness Extremities: No edema, Normal pulses Skin: No significant lesion Labs Labs: Laboratory Tests Test 02/27/22 12:06 02/27/22 16:47 02/27/22 20:29 02/28/22 07:38 Glucose (Fingerstick) 114 mg/dL (70-99) 176 mg/dL (70-99) 202 mg/dL (70-99) 132 mg/dL (70-99) Test 02/28/22 11:31 Glucose (Fingerstick) 158 mg/dL (70-99) Assessment and Plan Assessmemt and Plan Problems Medical Problems: (1) Back pain Status: Acute (2) Exertional dyspnea Status: Acute (3) Hypoxia Status: Acute (4) Large pleural effusion Status: Acute (5) Left lower lobe pneumonia Status: Acute Comment Review of Relevant I have reviewed the following items becca (where applicable) has been applied. Medications: Current Medications Medications (Trade) Dose Ordered Sig/Jesenia Route PRN Reason Start Time Stop Time Status Last Admin Dose Admin Lidocaine HCl 10 ml/Alteplase, Recombinant 5 mg/ Sterile Water 55 ml @ 60 mls/hr 1X ONCE IRR 02/28/22 10:00 02/28/22 10:54 DC 02/28/22 11:19 Justifications for Admission Other Justification LYDIA WHITEHEAD MD February 28, 2022 11:48
--- NOTE | 2022-02-28 11:56 | RAD ---
XR CHEST 1V History: Reason: Pleural fluid / Spl. Instructions: / History: Comparison: February 27, 2022 Findings: Unchanged left basilar pigtail pleural drain. Small loculated left pleural effusion, unchanged. Patch y left mid and basilar opacities, unchanged. Unchanged right basilar linear atelectasis. No pneumotho rax. Unchanged heart size. Impression: 1. Stable appearance of the chest compared to prior. Electronically signed by: Yoshi Villalba DO (02/28/2022 11:54 AM) [id number]
[2022-02-28] MEDS: DOCUSATE SODIUM 100 MG CAPSULE. PO SCH ×2 (11:59→20:47)
[2022-02-28] MEDS: MORPHINE SULFATE 2 MG/ML INJ. IVP PRN (11:59)
--- NOTE | 2022-02-28 13:42 | PDOC ---
Infectious Disease Note Subjective Subjective pt is feeling ok ROS ROS No nausea vomiting diarrhea Vital Sign Vital Signs Vital Signs Date Time Temp Pulse Resp B/P (MAP) Pulse Ox O2 Delivery O2 Flow Rate FiO2 02/28/22 13:00 Nasal Cannula 1.0 02/28/22 11:29 97 02/28/22 11:00 98.0 106 20 149/86 (107) 98.0 Physical Exam PHYSICAL EXAM GENERAL: Alert, oriented female, not in any distress. VITAL SIGNS: Stable. Afebrile. HEENT: NC/AT. NECK: Supple. No JVP. No lymphadenopathy. LUNGS: Clear. HEART: S1, S2, regular. ABDOMEN: Soft, nontender. No organomegaly. EXTREMITIES: No edema or cyanosis. SKIN: Unremarkable. NEUROLOGIC: The patient is alert, awake, and appropriate. No focal neurologic deficit. Labs Lab Laboratory Tests Test 02/27/22 16:47 02/27/22 20:29 02/28/22 07:38 02/28/22 11:31 Glucose (Fingerstick) 176 mg/dL (70-99) 202 mg/dL (70-99) 132 mg/dL (70-99) 158 mg/dL (70-99) Micro BC 1/3 FINAL ID= [id number] [id number] pleural fluid culture neg so far Objective Assessment IMPRESSION: 1. Left-sided empyema, status post chest tube drainage. 2. Blood culture positive 1/3, gram-positive cocci, most likely to be contaminant. 3. Pneumonia. 4. Obesity. 5. Diabetes. 6. Hypertension. Plan Plan of Care cont antibiotics cont chest tube support LETY QUIGLEY MD February 28, 2022 13:42
[2022-02-28] MEDS: IBUPROFEN 400 MG TABLET. PO PRN (14:51)
[2022-02-28 15:00] VITALS: BP 143/82
--- NOTE | 2022-02-28 15:14 | RAD ---
XR CHEST 1V History: Reason: chest tube placement verification / Spl. Instructions: / History: Comparison: February 28, 2022. At 9:02 AM Findings: Unchanged left pigtail pleural catheter. Unchanged small loculated left pleural effusion. Patchy left mid and basilar opacities, unchanged. Linear right basilar atelectasis, unchanged. Unchanged heart s ize. No pneumothorax. Impression: 1. Stable appearance of the chest compared to prior. Electronically signed by: Yoshi Villalba DO (02/28/2022 3:12 PM) [id number]
[2022-02-28 19:00] VITALS: BP 109/64
[2022-02-28] MEDS: ATORVASTATIN CALCIUM 40 MG TABLET. PO SCH (20:47)
[2022-02-28 23:00] VITALS: BP 128/69
[2022-03-01 03:00] VITALS: BP 117/76
[2022-03-01] MEDS: oxyCODONE/APAP 5/325 1 TAB TABLET PO PRN (04:52)
[2022-03-01] MEDS: PIPERACILLIN/TAZOBACTAM 4.5 GM in IV DEXTROSE 5% 100ML 100 ML IV SCH ×4 (05:29→23:18)
[2022-03-01 07:00] VITALS: BP 123/82
[2022-03-01] MEDS: INSULIN LISPRO 300 UNITS/3 ML VIAL. SQ SCH ×3 (08:00→17:00)
[2022-03-01] MEDS: EMPAGLIFLOZIN 25 MG TABLET. PO SCH (08:22)
[2022-03-01] MEDS: LACTOBACILLUS RHAMNOSUS GG 1 CAPSULE. PO SCH ×2 (08:22→22:17)
[2022-03-01] MEDS: buPROPion XL 150 MG TAB.ER.24H. PO SCH (08:22)
[2022-03-01] MEDS: CYCLOBENZAPRINE 10 MG TABLET. PO SCH ×2 (08:22→22:17)
[2022-03-01] MEDS: ENOXAPARIN 40 MG/0.4 ML SYRINGE. SQ SCH (08:22)
[2022-03-01] MEDS: DOCUSATE SODIUM 100 MG CAPSULE. PO SCH ×2 (08:22→22:17)
[2022-03-01] MEDS: ASPIRIN CHEWABLE 81 MG TABLET. PO SCH (08:22)
[2022-03-01] MEDS: hydroCHLOROthiazide 12.5 MG TABLET PO SCH (08:22)
[2022-03-01] MEDS: DOXYCYCLINE HYCLATE 100 MG TABLET PO SCH ×2 (08:22→22:17)
[2022-03-01] MEDS: LOSARTAN POTASSIUM 50 MG TABLET. PO SCH (08:23)
[2022-03-01] MEDS: MORPHINE SULFATE 2 MG/ML INJ. IVP PRN (08:35)
--- NOTE | 2022-03-01 09:22 | RAD ---
XR CHEST 1V History: Pleural fluid. Comparison: Chest x-ray 02/28/2022, 02/27/2022, CT chest 02/25/2022 Technique: Portable AP chest radiograph. Findings/ Impression: Tubes and lines: Left posterior basilar pigtail pleural drainage catheter. Lungs and pleura: Progressive increase in pleural fluid with Cannulated collection at the left upper chest and similar appearance of left lower chest pleural effu ranjit. Moderate left-sided consolidations and atelectasis. Mild right basilar atelectasis. Cardiac silhouette and pulmonary vasculature: Unremarkable. Osseous structures and other: No acute findings. Electronically signed by: Manjinder Estevez MD (03/01/2022 9:19 AM) [facility]
--- NOTE | 2022-03-01 09:55 | PDOC ---
PULMONARY PROGRESS NOTES DATE: 03/01/22 TIME: 09:52 Subjective Status post left chest tube. Status post tPA to the left chest tube x2 doses.. 300 cc of bloody fluid came out. Patient feels nauseous from morphine. Vitals Vital Signs Date Time Temp Pulse Resp B/P (MAP) Pulse Ox O2 Delivery O2 Flow Rate FiO2 03/01/22 09:41 Nasal Cannula 1.0 03/01/22 08:23 109 123/82 03/01/22 07:00 99.1 20 96 99.1 ROS: No Nausea, No Chest Pain, No Abdominal Pain, No Increase Cough General: No acute distress Lungs: Other (decreased throughout, left lung) Cardiovascular: S2 Abdomen: Soft Neuro Exam: Alert Extremities: No Edema Skin: Warm Labs Laboratory Tests Test 02/27/22 12:06 02/27/22 16:47 02/27/22 20:29 02/28/22 07:38 Glucose (Fingerstick) 114 mg/dL (70-99) 176 mg/dL (70-99) 202 mg/dL (70-99) 132 mg/dL (70-99) Test 02/28/22 11:31 02/28/22 17:02 02/28/22 19:54 02/28/22 21:16 Glucose (Fingerstick) 158 mg/dL (70-99) 122 mg/dL (70-99) 337 mg/dL (70-99) 194 mg/dL (70-99) Test 03/01/22 08:04 Glucose (Fingerstick) 126 mg/dL (70-99) Laboratory Tests Test 02/28/22 11:31 02/28/22 17:02 02/28/22 19:54 02/28/22 21:16 Glucose (Fingerstick) 158 mg/dL (70-99) 122 mg/dL (70-99) 337 mg/dL (70-99) 194 mg/dL (70-99) Test 03/01/22 08:04 Glucose (Fingerstick) 126 mg/dL (70-99) Medications Active Scripts Medications Dose Route/Sig Max Daily Dose Days Date Category Orphenadrine Citrate 100 Mg Tablet.er 1 Tab PO BID 02/20/22 Rx Comments Chest x-ray 03/01/2022 reviewed. There is new left upper lobe fluid collection likely pleural hematoma. Atelectasis of the left lower lobe persist. Chest x-ray reviewed 02/27/2022. There is improved aeration of the left base. CT chest 02/25/2022 reviewed Impression: 1. Interval placement left pigtail pleural drain with decreased loculated fluid in the region of the drain. 2. Additional loculated components of the empyema superiorly and anteriorly, similar compared to prior. 3. Decreased left lower lobe atelectasis. 4. Increased mild left upper lobe linear atelectasis. 5. Unchanged mildly enlarged right axillary lymph nodes. Electronically signed by: Yoshi Villalba DO (02/25/2022 2:51 PM) [id number] Impression . Empyema left lung. New loculated left upper lobe fluid collection. Likely pleural hematoma. Status post tPA to the pleural space x2. abnormal CT chest with multiloculated left lung effusion. Consistent with empyema. Pneumonia complicated with empyema left lung. Status post left chest tube. pH 7.2. Type 2 diabetes Leukocytosis Anemia. Plan . Patient is status post 2 doses of tPA via chest tube. Chest x-ray today suspicious for left upper lobe pleural hematoma. Will need to monitor chest tube output closely. I have ordered repeat hemoglobin. Nexis discontinue Lovenox. Antibiotics per infectious disease. Will monitor chest x-ray. Routine analysis of pleural fluid, including microbiology and cytology. pH is 7.29 Monitor blood sugars Discontinue morphine. Patient complaining of nausea with morphine. Pleural fluid cultures negative. Blood culture is a contaminant. IMAN BEACH MD March 01, 2022 09:55
[2022-03-01 10:43] LABS: HEMATOCRIT 34.8 % (36.0-47.0); HEMOGLOBIN 11.6 g/dL (12.0-15.5); RED BLOOD COUNT 3.71 x10^6/uL (3.50-5.40); RED CELL DISTRIBUTION WIDTH 14.4 % (11.5-14.5); WHITE BLOOD COUNT 15.1 x10^3/uL (4.0-11.0)
[2022-03-01 11:00] VITALS: BP 130/73
--- NOTE | 2022-03-01 11:42 | PDOC ---
[facility] PROGRESS NOTE Date of Service DOS: DATE: 03/01/22 TIME: 11:40 Chief Complaint Chief Complaint Pneumonia and left pleural effusion. The patient will be admitted. We will start IV antibiotics, breathing treatments, oxygen. Consult Pulmonary, consult Interventional Radiology to consider left thoracentesis. Deep venous thrombosis prophylaxis. Full code. History of Present Illness History of Present Illness 03/01 Seen and examined at bedside. Shortness of breath stable. Chest tube still in place. Bloody output from chest tube after tPA. Continue current otherwise. Pulmonary infectious disease recommendations reviewed. Discussed with bedside RN. 02/28: Patient ports improvement in shortness of breath, currently breathing on 1 L O2. Chest tube in place. Discussed with pulmonology, will provide additional dose of tPA to further break up loculations. Complains of some constipation today, requesting docusate. 02/27: Afebrile. No worsening shortness of breath. Feels much better after insertion of tPA in the chest tube yesterday. Some complaints of constipation, but patient not willing to try any pharmacological measures. She is wanting to get up and walk around. Continue IV Zosyn, per ID. 02/26: Chest tube in place. She denies any worsening shortness of breath. Discussed with Dr. Rees, she would likely benefit from tPA via chest tube. ID has been consulted for gram-positive cocci in 1 of 3 bottles. Continue Zosyn. 02/25: Patient feels much better with chest tube in place. No worsening shortness of breath. She did have gram-positive cocci in 1 of 3 bottles. I have increase Rocephin to [address] consultation to ID. 02/24: Patient seen and evaluated. She states she is breathing much better with chest tube and removal of fluid. Still breathing on 2 L nasal cannula. Continue current IV antibiotics we will continue to wean oxygen as tolerated. 02/23 Patient evaluated examined at bedside. Resting in bed on nasal cannula still some shortness of breath. Discussed with patient and son at bedside at great length regarding plan of care. Continue IV antibiotics. Possible thoracentesis tomorrow. Pulmonary recommendations reviewed. Discussed with bedside RN. Vitals/I&O Vitals/I&O: Vital Signs Date Time Temp Pulse Resp B/P (MAP) Pulse Ox O2 Delivery O2 Flow Rate FiO2 03/01/22 09:41 Nasal Cannula 1.0 03/01/22 08:23 109 123/82 03/01/22 07:00 99.1 20 96 99.1 I & O 02/28/22 02/28/22 03/01/22 15:00 23:00 07:00 Intake Total 100 ml 0 ml Output Total 0 ml Balance 0 ml 100 ml 0 ml Physical Exam Physical Exam: GENERAL: Alert, oriented female, not in any distress. VITAL SIGNS: Stable. Afebrile. HEENT: NC/AT. NECK: Supple. No JVP. No lymphadenopathy. LUNGS: Clear. HEART: S1, S2, regular. ABDOMEN: Soft, nontender. No organomegaly. EXTREMITIES: No edema or cyanosis. SKIN: Unremarkable. NEUROLOGIC: The patient is alert, awake, and appropriate. No focal neurologic deficit. General: Alert, Oriented X3, Cooperative Heart: Regular rate, Normal S1, Normal S2 Lungs: Other (decreased throughout, left lung) Abdomen: Normal bowel sounds, Soft, No tenderness Extremities: No edema, Normal pulses Skin: No significant lesion Labs Labs: Laboratory Tests Test 02/28/22 17:02 02/28/22 19:54 02/28/22 21:16 03/01/22 08:04 Glucose (Fingerstick) 122 mg/dL (70-99) 337 mg/dL (70-99) 194 mg/dL (70-99) 126 mg/dL (70-99) Test 03/01/22 10:11 White Blood Count 15.1 x10^3/uL (4.0-11.0) Red Blood Count 3.71 x10^6/uL (3.50-5.40) Hemoglobin 11.6 g/dL (12.0-15.5) Hematocrit 34.8 % (36.0-47.0) Mean Corpuscular Volume 94 fL (79-100) Mean Corpuscular Hemoglobin 31 pg (25-35) Mean Corpuscular Hemoglobin Concent 33 g/dL (31-37) Red Cell Distribution Width 14.4 % (11.5-14.5) Platelet Count 380 x10^3/uL (140-400) Assessment and Plan Assessmemt and Plan Problems Medical Problems: (1) Back pain Status: Acute (2) Exertional dyspnea Status: Acute (3) Hypoxia Status: Acute (4) Large pleural effusion Status: Acute (5) Left lower lobe pneumonia Status: Acute Comment Review of Relevant I have reviewed the following items becca (where applicable) has been applied. Medications: Current Medications Medications (Trade) Dose Ordered Sig/Jesenia Route PRN Reason Start Time Stop Time Status Last Admin Dose Admin Docusate Sodium (Colace) 100 mg BID PO 02/28/22 12:00 03/01/22 08:22 Justifications for Admission Other Justification FREDDIE MOSLEY MD March 01, 2022 11:42
[2022-03-01 14:57] VITALS: BP 119/69
[2022-03-01 19:00] VITALS: BP 111/59
[2022-03-01] MEDS: IBUPROFEN 400 MG TABLET. PO PRN (22:17)
[2022-03-01] MEDS: ATORVASTATIN CALCIUM 40 MG TABLET. PO SCH (22:17)
[2022-03-01 23:03] VITALS: BP 113/66
[2022-03-02 03:12] VITALS: BP 116/66
[2022-03-02] MEDS: PIPERACILLIN/TAZOBACTAM 4.5 GM in IV DEXTROSE 5% 100ML 100 ML IV SCH ×4 (05:47→23:21)
[2022-03-02 07:00] VITALS: BP 129/87
[2022-03-02 07:29] LABS: HEMATOCRIT 31.5 % (36.0-47.0); HEMOGLOBIN 10.6 g/dL (12.0-15.5); RED BLOOD COUNT 3.39 x10^6/uL (3.50-5.40); RED CELL DISTRIBUTION WIDTH 14.2 % (11.5-14.5); WHITE BLOOD COUNT 11.7 x10^3/uL (4.0-11.0)
--- NOTE | 2022-03-02 07:53 | PDOC ---
[employer] PROGRESS NOTE Date of Service DOS: DATE: 03/02/22 TIME: 07:52 Chief Complaint Chief Complaint Pneumonia and left pleural effusion. The patient will be admitted. We will start IV antibiotics, breathing treatments, oxygen. Consult Pulmonary, consult Interventional Radiology to consider left thoracentesis. Deep venous thrombosis prophylaxis. Full code. History of Present Illness History of Present Illness 03/02: Seen bedside. Afebrile no real cough pain is improved. After initial 300 cc output after last tPA infusion she has had 20 to 30 cc output. And chest radiograph pending may be able to clamp tube and pull today if pulmonary agrees. 03/01: Seen and examined at bedside. Shortness of breath stable. Chest tube still in place. Bloody output from chest tube after tPA. Pulmonary infectious disease recs reviewed. 02/28: Patient ports improvement in shortness of breath, currently breathing on 1 L O2. Chest tube in place. Discussed with pulmonology, will provide additional dose of tPA to further break up loculations. Complains of some constipation today, requesting docusate. 02/27: Afebrile. No worsening shortness of breath. Feels much better after insertion of tPA in the chest tube yesterday. Some complaints of constipation, but patient not willing to try any pharmacological measures. She is wanting to get up and walk around. Continue IV Zosyn, per ID. 02/26: Chest tube in place. She denies any worsening shortness of breath. Discussed with Dr. Rees, she would likely benefit from tPA via chest tube. ID has been consulted for gram-positive cocci in 1 of 3 bottles. Continue Zosyn. 02/25: Patient feels much better with chest tube in place. No worsening shortness of breath. She did have gram-positive cocci in 1 of 3 bottles. I have increase Rocephin to [address] consultation to ID. 02/24: Patient seen and evaluated. She states she is breathing much better with chest tube and removal of fluid. Still breathing on 2 L nasal cannula. Continue current IV antibiotics we will continue to wean oxygen as tolerated. 02/23: Patient evaluated examined at bedside. Resting in bed on nasal cannula still some shortness of breath. Discussed with patient and son at bedside at great length regarding plan of care. Continue IV antibiotics. Possible thoracentesis tomorrow. Pulmonary recommendations reviewed. Discussed with bedside RN. Vitals/I&O Vitals/I&O: Vital Signs Date Time Temp Pulse Resp B/P (MAP) Pulse Ox O2 Delivery O2 Flow Rate FiO2 03/02/22 03:12 97.9 87 20 116/66 (83) 96 Nasal Cannula 97.9 03/01/22 19:20 2.0 I & O 03/01/22 03/01/22 03/02/22 15:00 23:00 07:00 Intake Total 200 ml 300 ml Output Total 1100 ml Balance 200 ml 300 ml -1100 ml Physical Exam Physical Exam: GENERAL: Alert, oriented female, not in any distress. VITAL SIGNS: Stable. Afebrile. HEENT: NC/AT. NECK: Supple. No JVP. No lymphadenopathy. LUNGS: Clear. HEART: S1, S2, regular. ABDOMEN: Soft, nontender. No organomegaly. EXTREMITIES: No edema or cyanosis. SKIN: Unremarkable. NEUROLOGIC: The patient is alert, awake, and appropriate. No focal neurologic deficit. General: Alert, Oriented X3, Cooperative Heart: Regular rate, Normal S1, Normal S2 Lungs: Other (decreased throughout, left lung) Abdomen: Normal bowel sounds, Soft, No tenderness Extremities: No edema, Normal pulses Skin: No significant lesion Labs Labs: Laboratory Tests Test 03/01/22 08:04 03/01/22 10:11 03/01/22 12:04 03/01/22 17:20 Glucose (Fingerstick) 126 mg/dL (70-99) 196 mg/dL (70-99) 126 mg/dL (70-99) White Blood Count 15.1 x10^3/uL (4.0-11.0) Red Blood Count 3.71 x10^6/uL (3.50-5.40) Hemoglobin 11.6 g/dL (12.0-15.5) Hematocrit 34.8 % (36.0-47.0) Mean Corpuscular Volume 94 fL (79-100) Mean Corpuscular Hemoglobin 31 pg (25-35) Mean Corpuscular Hemoglobin Concent 33 g/dL (31-37) Red Cell Distribution Width 14.4 % (11.5-14.5) Platelet Count 380 x10^3/uL (140-400) Test 03/01/22 20:46 03/02/22 06:23 03/02/22 07:13 Glucose (Fingerstick) 154 mg/dL (70-99) 220 mg/dL (70-99) White Blood Count 11.7 x10^3/uL (4.0-11.0) Red Blood Count 3.39 x10^6/uL (3.50-5.40) Hemoglobin 10.6 g/dL (12.0-15.5) Hematocrit 31.5 % (36.0-47.0) Mean Corpuscular Volume 93 fL (79-100) Mean Corpuscular Hemoglobin 31 pg (25-35) Mean Corpuscular Hemoglobin Concent 34 g/dL (31-37) Red Cell Distribution Width 14.2 % (11.5-14.5) Platelet Count 334 x10^3/uL (140-400) Assessment and Plan Assessmemt and Plan Problems Medical Problems: (1) Back pain Status: Acute (2) Exertional dyspnea Status: Acute (3) Hypoxia Status: Acute (4) Large pleural effusion Status: Acute (5) Left lower lobe pneumonia Status: Acute Comment Review of Relevant I have reviewed the following items becca (where applicable) has been applied. Justifications for Admission Other Justification FREDDIE BRUNO MD March 02, 2022 07:53
[2022-03-02] MEDS ORDERED: fentaNYL PF VIAL 100 MCG/2 ML VIAL IVP PRN (08:00)
[2022-03-02] MEDS ORDERED: DEXTROSE 50% 25 GM / 50ML DISP.SYRIN. IV PRN (08:00)
[2022-03-02] MEDS: DOXYCYCLINE HYCLATE 100 MG TABLET PO SCH ×2 (08:16→21:41)
[2022-03-02] MEDS: LACTOBACILLUS RHAMNOSUS GG 1 CAPSULE. PO SCH ×2 (08:17→21:41)
[2022-03-02] MEDS: EMPAGLIFLOZIN 25 MG TABLET. PO SCH (08:17)
[2022-03-02] MEDS: CYCLOBENZAPRINE 10 MG TABLET. PO SCH ×2 (08:17→21:41)
[2022-03-02] MEDS: DOCUSATE SODIUM 100 MG CAPSULE. PO SCH ×2 (08:17→21:41)
[2022-03-02] MEDS: ASPIRIN CHEWABLE 81 MG TABLET. PO SCH (08:17)
[2022-03-02] MEDS: buPROPion XL 150 MG TAB.ER.24H. PO SCH (08:17)
[2022-03-02] MEDS: LOSARTAN POTASSIUM 50 MG TABLET. PO SCH (08:17)
[2022-03-02] MEDS: INSULIN LISPRO 300 UNITS/3 ML VIAL. SQ SCH ×4 (08:21→21:00)
[2022-03-02 11:00] VITALS: BP 145/73
--- NOTE | 2022-03-02 11:25 | PDOC ---
PULMONARY PROGRESS NOTES DATE: 03/02/22 TIME: 11:23 Subjective Status post left chest tube. Status post tPA to the left chest tube x2 doses.. 300 cc of bloody fluid came out 03/01. It is now slowing significantly down.. Patient looks better. Vitals Vital Signs Date Time Temp Pulse Resp B/P (MAP) Pulse Ox O2 Delivery O2 Flow Rate FiO2 03/02/22 08:17 99 129/87 03/02/22 08:00 Nasal Cannula 1.0 03/02/22 07:00 98.0 18 96 98.0 ROS: No Nausea, No Chest Pain, No Abdominal Pain, No Increase Cough General: Alert, No acute distress Lungs: Other (decreased throughout, left lung) Cardiovascular: S2 Abdomen: Soft Neuro Exam: Alert Extremities: No Edema Skin: Warm Labs Laboratory Tests Test 02/28/22 11:31 02/28/22 17:02 02/28/22 19:54 02/28/22 21:16 Glucose (Fingerstick) 158 mg/dL (70-99) 122 mg/dL (70-99) 337 mg/dL (70-99) 194 mg/dL (70-99) Test 03/01/22 08:04 03/01/22 10:11 03/01/22 12:04 03/01/22 17:20 Glucose (Fingerstick) 126 mg/dL (70-99) 196 mg/dL (70-99) 126 mg/dL (70-99) White Blood Count 15.1 x10^3/uL (4.0-11.0) Red Blood Count 3.71 x10^6/uL (3.50-5.40) Hemoglobin 11.6 g/dL (12.0-15.5) Hematocrit 34.8 % (36.0-47.0) Mean Corpuscular Volume 94 fL (79-100) Mean Corpuscular Hemoglobin 31 pg (25-35) Mean Corpuscular Hemoglobin Concent 33 g/dL (31-37) Red Cell Distribution Width 14.4 % (11.5-14.5) Platelet Count 380 x10^3/uL (140-400) Test 03/01/22 20:46 03/02/22 06:23 03/02/22 07:13 Glucose (Fingerstick) 154 mg/dL (70-99) 220 mg/dL (70-99) White Blood Count 11.7 x10^3/uL (4.0-11.0) Red Blood Count 3.39 x10^6/uL (3.50-5.40) Hemoglobin 10.6 g/dL (12.0-15.5) Hematocrit 31.5 % (36.0-47.0) Mean Corpuscular Volume 93 fL (79-100) Mean Corpuscular Hemoglobin 31 pg (25-35) Mean Corpuscular Hemoglobin Concent 34 g/dL (31-37) Red Cell Distribution Width 14.2 % (11.5-14.5) Platelet Count 334 x10^3/uL (140-400) Laboratory Tests Test 03/01/22 12:04 03/01/22 17:20 03/01/22 20:46 03/02/22 06:23 Glucose (Fingerstick) 196 mg/dL (70-99) 126 mg/dL (70-99) 154 mg/dL (70-99) White Blood Count 11.7 x10^3/uL (4.0-11.0) Red Blood Count 3.39 x10^6/uL (3.50-5.40) Hemoglobin 10.6 g/dL (12.0-15.5) Hematocrit 31.5 % (36.0-47.0) Mean Corpuscular Volume 93 fL (79-100) Mean Corpuscular Hemoglobin 31 pg (25-35) Mean Corpuscular Hemoglobin Concent 34 g/dL (31-37) Red Cell Distribution Width 14.2 % (11.5-14.5) Platelet Count 334 x10^3/uL (140-400) Test 03/02/22 07:13 Glucose (Fingerstick) 220 mg/dL (70-99) Medications Active Scripts Medications Dose Route/Sig Max Daily Dose Days Date Category Orphenadrine Citrate 100 Mg Tablet.er 1 Tab PO BID 02/20/22 Rx Comments Chest X reviewed 03/02/2022. per my impression left upper lobe opacification is less dense Decreased volume loss left lower lobe, increased chest x-ray 03/01/2022 reviewed. There is new left upper lobe fluid collection likely pleural hematoma. Atelectasis of the left lower lobe persist. Chest x-ray reviewed 02/27/2022. There is improved aeration of the left base. CT chest 02/25/2022 reviewed Impression: 1. Interval placement left pigtail pleural drain with decreased loculated fluid in the region of the drain. 2. Additional loculated components of the empyema superiorly and anteriorly, similar compared to prior. 3. Decreased left lower lobe atelectasis. 4. Increased mild left upper lobe linear atelectasis. 5. Unchanged mildly enlarged right axillary lymph nodes. Electronically signed by: Yoshi Villalba DO (02/25/2022 2:51 PM) [id number] Impression . Empyema left lung. Cultures negative as of today. New loculated left upper lobe fluid collection 03/01/2022.. Likely pleural hematoma. Lovenox discontinued. f/u cxr 03/02 appears less dense opacification CHRISTINA, increased LLL Status post tPA to the pleural space x2. abnormal CT chest with multiloculated left lung effusion. Consistent with empyema. Pneumonia complicated with empyema left lung. Status post left chest tube. pH 7.2. Type 2 diabetes Leukocytosis Anemia. Plan . Patient is status post 2 doses of tPA via chest tube. drainage less bloody and slowed down monitor cxr. Will need to monitor chest tube output closely. Monitor hemoglobin closely. Of Lovenox Antibiotics per infectious disease. may need ct chest if cxr shows no improvement Routine analysis of pleural fluid, including microbiology and cytology. pH is 7.29 Monitor blood sugars Off morphine. Pleural fluid cultures negative. Blood culture is a contaminant. IMAN BEACH MD March 02, 2022 11:25
--- NOTE | 2022-03-02 13:57 | RAD ---
XR CHEST 1V History: Reason: Left pleural drain / Spl. Instructions: / History: Comparison: March 01, 2022 Findings: Unchanged left pigtail pleural catheter. Increased opacification of the left hemithorax. Probable loc ulated left apical pleural fluid, increased compared to prior. Small loculated left basilar pleural e ffusion. Decreased linear right basilar atelectasis. Unchanged heart size. No pneumothorax. Impression: 1. Overall increased left hemithorax opacification. Increased left apical loculated probable pleural fluid. CT can further assess if clinically indicated. 2. Stable left basilar pleural drain with loculated basilar pleural effusion. Electronically signed by: Yoshi Villalba DO (03/02/2022 1:55 PM) [facility]
[2022-03-02 15:00] VITALS: BP 123/61
[2022-03-02 19:00] VITALS: BP 131/86
[2022-03-02] MEDS ORDERED: POLYETHYLENE GLYCOL 3350 17 GM PACKET. PO PRN (20:30)
[2022-03-02] MEDS: ATORVASTATIN CALCIUM 40 MG TABLET. PO SCH (21:41)
[2022-03-02] MEDS: IBUPROFEN 400 MG TABLET. PO PRN (21:41)
[2022-03-02] MEDS: INSULIN GLARGINE SYRINGE. SQ SCH (21:47)
[2022-03-02 23:00] VITALS: BP 116/75
[2022-03-03 03:00] VITALS: BP 120/76
[2022-03-03 05:57] LABS: CREATININE 0.9 mg/dL (0.6-1.0); GFR 79.3
[2022-03-03] MEDS: PIPERACILLIN/TAZOBACTAM 4.5 GM in IV DEXTROSE 5% 100ML 100 ML IV SCH ×3 (05:57→18:00)
[2022-03-03 06:00] LABS: BASO % 0 % (0-3); EOS # 0.1 x10^3/uL (0.0-0.7); EOS % 1 % (0-3); HEMATOCRIT 30.2 % (36.0-47.0); HEMOGLOBIN 10.2 g/dL (12.0-15.5); LYMPH # 2.2 x10^3/uL (1.0-4.8); LYMPH % 20 % (24-48); MEAN CORPUSCULAR HEMOGLOBIN 31 pg (25-35); MEAN CORPUSCULAR HGB CONC 34 g/dL (31-37); MEAN CORPUSCULAR VOLUME 92 fL (79-100); MONO # 0.8 x10^3/uL (0.0-1.1); MONO % 7 % (0-9); NEUT # 7.9 x10^3/uL (1.8-7.7); NEUT % 72 % (31-73); PLATELET COUNT 356 x10^3/uL (140-400); RED BLOOD COUNT 3.27 x10^6/uL (3.50-5.40); RED CELL DISTRIBUTION WIDTH 14.1 % (11.5-14.5)
[2022-03-03 07:00] VITALS: BP 123/70
[2022-03-03] MEDS: INSULIN LISPRO 300 UNITS/3 ML VIAL. SQ SCH ×4 (07:30→21:00)
--- NOTE | 2022-03-03 07:56 | PDOC ---
Infectious Disease Note Subjective Subjective pt is feeling ok ROS ROS no n/v/d/sob Vital Sign Vital Signs Vital Signs Date Time Temp Pulse Resp B/P (MAP) Pulse Ox O2 Delivery O2 Flow Rate FiO2 03/03/22 03:00 97.6 86 18 120/76 (91) 91 Nasal Cannula 1.0 97.6 Physical Exam PHYSICAL EXAM GENERAL: Alert, oriented female, not in any distress. VITAL SIGNS: Stable. Afebrile. HEENT: NC/AT. NECK: Supple. No JVP. No lymphadenopathy. LUNGS: Clear. HEART: S1, S2, regular. ABDOMEN: Soft, nontender. No organomegaly. EXTREMITIES: No edema or cyanosis. SKIN: Unremarkable. NEUROLOGIC: The patient is alert, awake, and appropriate. No focal neurologic deficit. Labs Lab Laboratory Tests Test 03/02/22 11:46 03/02/22 16:58 03/02/22 19:52 03/03/22 04:50 Glucose (Fingerstick) 100 mg/dL (70-99) 192 mg/dL (70-99) 143 mg/dL (70-99) White Blood Count 11.0 x10^3/uL (4.0-11.0) Red Blood Count 3.27 x10^6/uL (3.50-5.40) Hemoglobin 10.2 g/dL (12.0-15.5) Hematocrit 30.2 % (36.0-47.0) Mean Corpuscular Volume 92 fL (79-100) Mean Corpuscular Hemoglobin 31 pg (25-35) Mean Corpuscular Hemoglobin Concent 34 g/dL (31-37) Red Cell Distribution Width 14.1 % (11.5-14.5) Platelet Count 356 x10^3/uL (140-400) Neutrophils (%) (Auto) 72 % (31-73) Lymphocytes (%) (Auto) 20 % (24-48) Monocytes (%) (Auto) 7 % (0-9) Eosinophils (%) (Auto) 1 % (0-3) Basophils (%) (Auto) 0 % (0-3) Neutrophils # (Auto) 7.9 x10^3/uL (1.8-7.7) Lymphocytes # (Auto) 2.2 x10^3/uL (1.0-4.8) Monocytes # (Auto) 0.8 x10^3/uL (0.0-1.1) Eosinophils # (Auto) 0.1 x10^3/uL (0.0-0.7) Basophils # (Auto) 0.0 x10^3/uL (0.0-0.2) Sodium Level 143 mmol/L (136-145) Potassium Level 3.0 mmol/L (3.5-5.1) Chloride Level 101 mmol/L (98-107) Carbon Dioxide Level 30 mmol/L (21-32) Anion Gap 12 (6-14) Blood Urea Nitrogen 15 mg/dL (7-20) Creatinine 0.9 mg/dL (0.6-1.0) Estimated GFR (Cockcroft-Gault) 79.3 Glucose Level 128 mg/dL (70-99) Calcium Level 9.0 mg/dL (8.5-10.1) Test 03/03/22 07:37 Glucose (Fingerstick) 114 mg/dL (70-99) Micro BC 1/ FINAL ID= [id number] pleural fluid culture neg so far Objective Assessment IMPRESSION: 1. Left-sided empyema, status post chest tube drainage. 2. Blood culture positive /3, gram-positive cocci, most likely to be contaminant. 3. Pneumonia. 4. Obesity. 5. Diabetes. 6. Hypertension. Plan Plan of Care cont antibiotics cont chest tube support ct today LETY QUIGLEY MD March 03, 2022 07:56
--- NOTE | 2022-03-03 08:08 | RAD ---
AP chest. HISTORY: Empyema AP view was taken of the chest. There is a loculated posterior left pleural fluid collection. There i s a posterior pigtail drain catheter on the left. There is loculated fluid in the left lung base. The re is left basilar atelectasis and infiltrate. There is right infiltrate. Heart is normal in size. Th ere is been little change compared to the prior study. IMPRESSION: 1. Bibasilar infiltrates. 2. Left pleural catheter at the lung bases. 3. Loculated fluid collection posterior upper chest on the left. 4. Little change. Electronically signed by: Tom Robles MD (03/03/2022 8:06 AM) [facility]
--- NOTE | 2022-03-03 09:22 | PDOC ---
PULMONARY PROGRESS NOTES DATE: 03/03/22 TIME: 09:19 Subjective Status post left chest tube. Status post tPA to the left chest tube x2 doses.. 300 cc of bloody fluid came out 03/01. It is now slowing significantly down.. Still has bloody drainage. Vitals Vital Signs Date Time Temp Pulse Resp B/P (MAP) Pulse Ox O2 Delivery O2 Flow Rate FiO2 03/03/22 07:00 98.1 93 18 123/70 (87) 96 Nasal Cannula 1.0 98.1 ROS: No Nausea, No Chest Pain, No Abdominal Pain, No Increase Cough General: Alert, No acute distress Lungs: Other (decreased throughout, left lung) Cardiovascular: S2 Abdomen: Soft Neuro Exam: Alert Extremities: No Edema Skin: Warm Labs Laboratory Tests Test 03/01/22 10:11 03/01/22 12:04 03/01/22 17:20 03/01/22 20:46 White Blood Count 15.1 x10^3/uL (4.0-11.0) Red Blood Count 3.71 x10^6/uL (3.50-5.40) Hemoglobin 11.6 g/dL (12.0-15.5) Hematocrit 34.8 % (36.0-47.0) Mean Corpuscular Volume 94 fL (79-100) Mean Corpuscular Hemoglobin 31 pg (25-35) Mean Corpuscular Hemoglobin Concent 33 g/dL (31-37) Red Cell Distribution Width 14.4 % (11.5-14.5) Platelet Count 380 x10^3/uL (140-400) Glucose (Fingerstick) 196 mg/dL (70-99) 126 mg/dL (70-99) 154 mg/dL (70-99) Test 03/02/22 06:23 03/02/22 07:13 03/02/22 11:46 03/02/22 16:58 White Blood Count 11.7 x10^3/uL (4.0-11.0) Red Blood Count 3.39 x10^6/uL (3.50-5.40) Hemoglobin 10.6 g/dL (12.0-15.5) Hematocrit 31.5 % (36.0-47.0) Mean Corpuscular Volume 93 fL (79-100) Mean Corpuscular Hemoglobin 31 pg (25-35) Mean Corpuscular Hemoglobin Concent 34 g/dL (31-37) Red Cell Distribution Width 14.2 % (11.5-14.5) Platelet Count 334 x10^3/uL (140-400) Glucose (Fingerstick) 220 mg/dL (70-99) 100 mg/dL (70-99) 192 mg/dL (70-99) Test 03/02/22 19:52 03/03/22 04:50 03/03/22 07:37 Glucose (Fingerstick) 143 mg/dL (70-99) 114 mg/dL (70-99) White Blood Count 11.0 x10^3/uL (4.0-11.0) Red Blood Count 3.27 x10^6/uL (3.50-5.40) Hemoglobin 10.2 g/dL (12.0-15.5) Hematocrit 30.2 % (36.0-47.0) Mean Corpuscular Volume 92 fL (79-100) Mean Corpuscular Hemoglobin 31 pg (25-35) Mean Corpuscular Hemoglobin Concent 34 g/dL (31-37) Red Cell Distribution Width 14.1 % (11.5-14.5) Platelet Count 356 x10^3/uL (140-400) Neutrophils (%) (Auto) 72 % (31-73) Lymphocytes (%) (Auto) 20 % (24-48) Monocytes (%) (Auto) 7 % (0-9) Eosinophils (%) (Auto) 1 % (0-3) Basophils (%) (Auto) 0 % (0-3) Neutrophils # (Auto) 7.9 x10^3/uL (1.8-7.7) Lymphocytes # (Auto) 2.2 x10^3/uL (1.0-4.8) Monocytes # (Auto) 0.8 x10^3/uL (0.0-1.1) Eosinophils # (Auto) 0.1 x10^3/uL (0.0-0.7) Basophils # (Auto) 0.0 x10^3/uL (0.0-0.2) Sodium Level 143 mmol/L (136-145) Potassium Level 3.0 mmol/L (3.5-5.1) Chloride Level 101 mmol/L (98-107) Carbon Dioxide Level 30 mmol/L (21-32) Anion Gap 12 (6-14) Blood Urea Nitrogen 15 mg/dL (7-20) Creatinine 0.9 mg/dL (0.6-1.0) Estimated GFR (Cockcroft-Gault) 79.3 Glucose Level 128 mg/dL (70-99) Calcium Level 9.0 mg/dL (8.5-10.1) Laboratory Tests Test 03/02/22 11:46 03/02/22 16:58 03/02/22 19:52 03/03/22 04:50 Glucose (Fingerstick) 100 mg/dL (70-99) 192 mg/dL (70-99) 143 mg/dL (70-99) White Blood Count 11.0 x10^3/uL (4.0-11.0) Red Blood Count 3.27 x10^6/uL (3.50-5.40) Hemoglobin 10.2 g/dL (12.0-15.5) Hematocrit 30.2 % (36.0-47.0) Mean Corpuscular Volume 92 fL (79-100) Mean Corpuscular Hemoglobin 31 pg (25-35) Mean Corpuscular Hemoglobin Concent 34 g/dL (31-37) Red Cell Distribution Width 14.1 % (11.5-14.5) Platelet Count 356 x10^3/uL (140-400) Neutrophils (%) (Auto) 72 % (31-73) Lymphocytes (%) (Auto) 20 % (24-48) Monocytes (%) (Auto) 7 % (0-9) Eosinophils (%) (Auto) 1 % (0-3) Basophils (%) (Auto) 0 % (0-3) Neutrophils # (Auto) 7.9 x10^3/uL (1.8-7.7) Lymphocytes # (Auto) 2.2 x10^3/uL (1.0-4.8) Monocytes # (Auto) 0.8 x10^3/uL (0.0-1.1) Eosinophils # (Auto) 0.1 x10^3/uL (0.0-0.7) Basophils # (Auto) 0.0 x10^3/uL (0.0-0.2) Sodium Level 143 mmol/L (136-145) Potassium Level 3.0 mmol/L (3.5-5.1) Chloride Level 101 mmol/L (98-107) Carbon Dioxide Level 30 mmol/L (21-32) Anion Gap 12 (6-14) Blood Urea Nitrogen 15 mg/dL (7-20) Creatinine 0.9 mg/dL (0.6-1.0) Estimated GFR (Cockcroft-Gault) 79.3 Glucose Level 128 mg/dL (70-99) Calcium Level 9.0 mg/dL (8.5-10.1) Test 03/03/22 07:37 Glucose (Fingerstick) 114 mg/dL (70-99) Medications Active Scripts Medications Dose Route/Sig Max Daily Dose Days Date Category Orphenadrine Citrate 100 Mg Tablet.er 1 Tab PO BID 02/20/[address] chest reviewed from today. 1. Development of large loculated heterogeneous pleural collection at the anterior left upper chest. 2. Redemonstrated loculated posterior lower left chest pleural fluid collection status post drainage, similar to most recent comparison with similar appearance of bilateral airspace consolidations. Chest X reviewed 03/02/2022. per my impression left upper lobe opacification is less dense Decreased volume loss left lower lobe, increased chest x-ray 03/01/2022 reviewed. There is new left upper lobe fluid collection likely pleural hematoma. Atelectasis of the left lower lobe persist. Chest x-ray reviewed 02/27/2022. There is improved aeration of the left base. CT chest 02/25/2022 reviewed Impression: 1. Interval placement left pigtail pleural drain with decreased loculated fluid in the region of the drain. 2. Additional loculated components of the empyema superiorly and anteriorly, similar compared to prior. 3. Decreased left lower lobe atelectasis. 4. Increased mild left upper lobe linear atelectasis. 5. Unchanged mildly enlarged right axillary lymph nodes. Electronically signed by: Yoshi Villalba DO (02/25/2022 2:51 PM) [id number] Impression . Empyema left lung. Cultures negative as of today. New loculated left upper lobe fluid collection 03/01/2022.. Likely pleural hematoma. Lovenox discontinued. CT chest with organized moderate size left upper lobe pleural hematoma. Unchanged LLL loculated effusion. She would benefit from VAT/thoracic surgery help. Status post tPA to the pleural space x2. only minimal improvement in LLL loculations. Pneumonia complicated with empyema left lung. Status post left chest tube. pH 7.2. Type 2 diabetes Leukocytosis Anemia. Plan . Persistent left upper lobe pleural hematoma. There is expansion. Patient is status post 2 doses of tPA via chest tube. drainage less bloody and slowed down. Pleural hematoma has increase in CHRISTINA/ loculations persist in LLL. She needs VAT/ Decortication and pleural hematoma evacuation. I spoke with Dr Ryder at thoracic surgery. He accepted patient but declined for financial reasons. [facility] has declined as well per Dr Menendez. Dr Diaz at [facility] is out of town till march 11. I also spoke with [facility] transfer team, they declined as well will consult IR in am for option of additional chest tube in CHRISTINA monitor cxr. Will need to monitor chest tube output closely. Monitor hemoglobin closely. Of Lovenox Antibiotics per infectious disease. Routine analysis of pleural fluid, including microbiology and cytology. pH is 7.29 Monitor blood sugars Off morphine. Pleural fluid cultures negative. Blood culture is a contaminant.ID following Discussed with patient and explained to her about the current situation. IMAN BEACH MD March 03, 2022 09:22
[2022-03-03] MEDS: buPROPion XL 150 MG TAB.ER.24H. PO SCH (10:13)
[2022-03-03] MEDS: LACTOBACILLUS RHAMNOSUS GG 1 CAPSULE. PO SCH ×2 (10:13→21:18)
[2022-03-03] MEDS: CYCLOBENZAPRINE 10 MG TABLET. PO SCH ×2 (10:13→21:18)
[2022-03-03] MEDS: ASPIRIN CHEWABLE 81 MG TABLET. PO SCH (10:13)
[2022-03-03] MEDS: DOCUSATE SODIUM 100 MG CAPSULE. PO SCH ×2 (10:13→21:18)
[2022-03-03] MEDS: EMPAGLIFLOZIN 25 MG TABLET. PO SCH (10:14)
[2022-03-03] MEDS: LOSARTAN POTASSIUM 50 MG TABLET. PO SCH (10:14)
--- NOTE | 2022-03-03 10:38 | RAD ---
CT THORAX WO History: Empyema Comparison: CT chest 02/25/2022, 02/23/2022 Technique: Noncontrast CT of the chest. Findings: Assessment is limited by lack of IV contrast. Cardiovascular: Normal caliber aorta. Heart size is normal. No pericardial effusion. No coronary leslie ry calcification. Mediastinum and michael: Mediastinal lymph nodes measure up to 8 mm short axis. Esophagus is mildly patu lous. Thyroid is normal. Airways, lungs and pleura: The central airways are patent. There is redemonstrated posterior right lo wer lobe pigtail pleural drainage catheter. Increase in loculated fluid collection at the anterior le ft upper chest measuring approximately 25 x 10 x 6 cm. Somewhat heterogeneous attenuation of the cont ents measuring greater than simple fluid. Posterior basilar left pleural fluid collection appears per haps minimally improved from February 25 comparison, decreased from prior to drainage placement. There is persistent right lower lobe airspace disease and redemonstrated moderate right lower lobe and mild le ft upper lobe consolidation with somewhat rounded appearance of the superior segment right upper lobe . No pneumothorax. No significant right pleural effusion. Upper abdomen: Limited evaluation of the upper abdomen is unremarkable. Osseous structures and soft tissues: Within normal limits for age. Impression: 1. Development of large loculated heterogeneous pleural collection at the anterior left upper chest. 2. Redemonstrated loculated posterior lower left chest pleural fluid collection status post drainage , similar to most recent comparison with similar appearance of bilateral airspace consolidations. ------ Exposure: One or more of the following individualized dose reduction techniques were utilized for thi s examination: 1. Automated exposure control 2. Adjustment of the mA and/or kV according to patient size 3. Use of iterative reconstruction technique. Electronically signed by: Manjinder Estevez MD (03/03/2022 10:36 AM) [facility]
[2022-03-03 11:00] VITALS: BP 123/84
[2022-03-03 15:00] VITALS: BP 111/62
[2022-03-03] MEDS: IBUPROFEN 400 MG TABLET. PO PRN (16:22)
[2022-03-03] MEDS: DOXYCYCLINE HYCLATE 100 MG TABLET PO SCH ×2 (16:23→21:19)
[2022-03-03 19:00] VITALS: BP 113/61
[2022-03-03] MEDS: ATORVASTATIN CALCIUM 40 MG TABLET. PO SCH (21:18)
[2022-03-03] MEDS: INSULIN GLARGINE SYRINGE. SQ SCH (21:25)
[2022-03-03 23:00] VITALS: BP 115/79
[2022-03-04] MEDS: PIPERACILLIN/TAZOBACTAM 4.5 GM in IV DEXTROSE 5% 100ML 100 ML IV SCH ×4 (00:04→17:58)
[2022-03-04 03:00] VITALS: BP 119/76
[2022-03-04 07:00] VITALS: BP 122/72
[2022-03-04] MEDS: DOXYCYCLINE HYCLATE 100 MG TABLET PO SCH ×2 (08:45→21:45)
[2022-03-04] MEDS: buPROPion XL 150 MG TAB.ER.24H. PO SCH (08:45)
[2022-03-04] MEDS: DOCUSATE SODIUM 100 MG CAPSULE. PO SCH ×2 (08:46→21:45)
[2022-03-04] MEDS: oxyCODONE/APAP 5/325 1 TAB TABLET PO PRN (08:46)
[2022-03-04] MEDS: ASPIRIN CHEWABLE 81 MG TABLET. PO SCH (08:47)
[2022-03-04] MEDS: LOSARTAN POTASSIUM 50 MG TABLET. PO SCH (08:47)
[2022-03-04] MEDS: LACTOBACILLUS RHAMNOSUS GG 1 CAPSULE. PO SCH ×2 (08:47→21:45)
[2022-03-04] MEDS: CYCLOBENZAPRINE 10 MG TABLET. PO SCH ×2 (08:47→21:45)
[2022-03-04] MEDS: EMPAGLIFLOZIN 25 MG TABLET. PO SCH (08:48)
[2022-03-04] MEDS: INSULIN LISPRO 300 UNITS/3 ML VIAL. SQ SCH ×4 (09:02→21:00)
--- NOTE | 2022-03-04 09:27 | PDOC ---
[employer] PROGRESS NOTE Date of Service DOS: Late entry March 03 Chief Complaint Chief Complaint Pneumonia and left pleural effusion. The patient will be admitted. We will start IV antibiotics, breathing treatments, oxygen. Consult Pulmonary, consult Interventional Radiology to consider left thoracentesis. Deep venous thrombosis prophylaxis. Full code. History of Present Illness History of Present Illness 03/03 Evaluated examined at bedside. Output through 2 slowed down quite a bit. Patient without complaint. Awaiting transfer to . 03/02: Seen bedside. Afebrile no real cough pain is improved. After initial 300 cc output after last tPA infusion she has had 20 to 30 cc output. And chest radiograph pending may be able to clamp tube and pull today if pulmonary agrees. 03/01: Seen and examined at bedside. Shortness of breath stable. Chest tube still in place. Bloody output from chest tube after tPA. Pulmonary infectious disease recs reviewed. 02/28: Patient ports improvement in shortness of breath, currently breathing on 1 L O2. Chest tube in place. Discussed with pulmonology, will provide additional dose of tPA to further break up loculations. Complains of some constipation today, requesting docusate. 02/27: Afebrile. No worsening shortness of breath. Feels much better after insertion of tPA in the chest tube yesterday. Some complaints of constipation, but patient not willing to try any pharmacological measures. She is wanting to get up and walk around. Continue IV Zosyn, per ID. 02/26: Chest tube in place. She denies any worsening shortness of breath. Discussed with Dr. Rees, she would likely benefit from tPA via chest tube. ID has been consulted for gram-positive cocci in 1 of 3 bottles. Continue Zosyn. 02/25: Patient feels much better with chest tube in place. No worsening shortness of breath. She did have gram-positive cocci in 1 of 3 bottles. I have increase Rocephin to [address] consultation to ID. 02/24: Patient seen and evaluated. She states she is breathing much better with chest tube and removal of fluid. Still breathing on 2 L nasal cannula. Continue current IV antibiotics we will continue to wean oxygen as tolerated. 02/23: Patient evaluated examined at bedside. Resting in bed on nasal cannula still some shortness of breath. Discussed with patient and son at bedside at great length regarding plan of care. Continue IV antibiotics. Possible thoracentesis tomorrow. Pulmonary recommendations reviewed. Discussed with bedside RN. Vitals/I&O Vitals/I&O: Vital Signs Date Time Temp Pulse Resp B/P (MAP) Pulse Ox O2 Delivery O2 Flow Rate FiO2 03/04/22 09:05 98 Room Air 03/04/22 08:47 69 122/72 03/04/22 07:00 98.3 18 1.0 98.3 I & O 03/03/22 03/03/22 03/04/22 15:00 23:00 07:00 Intake Total 240 ml 540 ml 0 ml Balance 240 ml 540 ml 0 ml Physical Exam Physical Exam: GENERAL: Alert, oriented female, not in any distress. VITAL SIGNS: Stable. Afebrile. HEENT: NC/AT. NECK: Supple. No JVP. No lymphadenopathy. LUNGS: Clear. HEART: S1, S2, regular. ABDOMEN: Soft, nontender. No organomegaly. EXTREMITIES: No edema or cyanosis. SKIN: Unremarkable. NEUROLOGIC: The patient is alert, awake, and appropriate. No focal neurologic deficit. General: Alert, Oriented X3, Cooperative Heart: Regular rate, Normal S1, Normal S2 Lungs: Other (decreased throughout, left lung) Abdomen: Normal bowel sounds, Soft, No tenderness Extremities: No edema, Normal pulses Skin: No significant lesion Labs Labs: Laboratory Tests Test 03/03/22 11:18 03/03/22 16:45 03/03/22 19:27 03/04/22 07:35 Glucose (Fingerstick) 198 mg/dL (70-99) 130 mg/dL (70-99) 180 mg/dL (70-99) 104 mg/dL (70-99) Assessment and Plan Assessmemt and Plan Problems Medical Problems: (1) Back pain Status: Acute (2) Exertional dyspnea Status: Acute (3) Hypoxia Status: Acute (4) Large pleural effusion Status: Acute (5) Left lower lobe pneumonia Status: Acute Comment Review of Relevant I have reviewed the following items becca (where applicable) has been applied. Justifications for Admission Other Justification FREDDIE MOSLEY MD March 04, 2022 09:27
--- NOTE | 2022-03-04 09:29 | PDOC ---
PULMONARY PROGRESS NOTES DATE: 03/04/22 TIME: 09:28 Subjective No significant drainage from chest tube Status post left chest tube. Status post tPA to the left chest tube x2 doses.. Vitals Vital Signs Date Time Temp Pulse Resp B/P (MAP) Pulse Ox O2 Delivery O2 Flow Rate FiO2 03/04/22 09:05 98 Room Air 03/04/22 08:47 69 122/72 03/04/22 07:00 98.3 18 1.0 98.3 ROS: No Nausea, No Chest Pain, No Abdominal Pain, No Increase Cough General: Alert, No acute distress Lungs: Other (decreased throughout, left lung) Cardiovascular: S2 Abdomen: Soft Neuro Exam: Alert Extremities: No Edema Skin: Warm Labs Laboratory Tests Test 03/02/22 11:46 03/02/22 16:58 03/02/22 19:52 03/03/22 04:50 Glucose (Fingerstick) 100 mg/dL (70-99) 192 mg/dL (70-99) 143 mg/dL (70-99) White Blood Count 11.0 x10^3/uL (4.0-11.0) Red Blood Count 3.27 x10^6/uL (3.50-5.40) Hemoglobin 10.2 g/dL (12.0-15.5) Hematocrit 30.2 % (36.0-47.0) Mean Corpuscular Volume 92 fL (79-100) Mean Corpuscular Hemoglobin 31 pg (25-35) Mean Corpuscular Hemoglobin Concent 34 g/dL (31-37) Red Cell Distribution Width 14.1 % (11.5-14.5) Platelet Count 356 x10^3/uL (140-400) Neutrophils (%) (Auto) 72 % (31-73) Lymphocytes (%) (Auto) 20 % (24-48) Monocytes (%) (Auto) 7 % (0-9) Eosinophils (%) (Auto) 1 % (0-3) Basophils (%) (Auto) 0 % (0-3) Neutrophils # (Auto) 7.9 x10^3/uL (1.8-7.7) Lymphocytes # (Auto) 2.2 x10^3/uL (1.0-4.8) Monocytes # (Auto) 0.8 x10^3/uL (0.0-1.1) Eosinophils # (Auto) 0.1 x10^3/uL (0.0-0.7) Basophils # (Auto) 0.0 x10^3/uL (0.0-0.2) Sodium Level 143 mmol/L (136-145) Potassium Level 3.0 mmol/L (3.5-5.1) Chloride Level 101 mmol/L (98-107) Carbon Dioxide Level 30 mmol/L (21-32) Anion Gap 12 (6-14) Blood Urea Nitrogen 15 mg/dL (7-20) Creatinine 0.9 mg/dL (0.6-1.0) Estimated GFR (Cockcroft-Gault) 79.3 Glucose Level 128 mg/dL (70-99) Calcium Level 9.0 mg/dL (8.5-10.1) Test 03/03/22 07:37 03/03/22 11:18 03/03/22 16:45 03/03/22 19:27 Glucose (Fingerstick) 114 mg/dL (70-99) 198 mg/dL (70-99) 130 mg/dL (70-99) 180 mg/dL (70-99) Test 03/04/22 07:35 Glucose (Fingerstick) 104 mg/dL (70-99) Laboratory Tests Test 03/03/22 11:18 03/03/22 16:45 03/03/22 19:27 03/04/22 07:35 Glucose (Fingerstick) 198 mg/dL (70-99) 130 mg/dL (70-99) 180 mg/dL (70-99) 104 mg/dL (70-99) Medications Active Scripts Medications Dose Route/Sig Max Daily Dose Days Date Category Orphenadrine Citrate 100 Mg Tablet.er 1 Tab PO BID 02/20/[address] chest reviewed from today. 1. Development of large loculated heterogeneous pleural collection at the anterior left upper chest. 2. Redemonstrated loculated posterior lower left chest pleural fluid collection status post drainage, similar to most recent comparison with similar appearance of bilateral airspace consolidations. Chest X reviewed 03/02/2022. per my impression left upper lobe opacification is less dense Decreased volume loss left lower lobe, increased chest x-ray 03/01/2022 reviewed. There is new left upper lobe fluid collection likely pleural hematoma. Atelectasis of the left lower lobe persist. Chest x-ray reviewed 02/27/2022. There is improved aeration of the left base. CT chest 02/25/2022 reviewed Impression: 1. Interval placement left pigtail pleural drain with decreased loculated fluid in the region of the drain. 2. Additional loculated components of the empyema superiorly and anteriorly, similar compared to prior. 3. Decreased left lower lobe atelectasis. 4. Increased mild left upper lobe linear atelectasis. 5. Unchanged mildly enlarged right axillary lymph nodes. Electronically signed by: Yoshi Villalba DO (02/25/2022 2:51 PM) [id number] Impression . Empyema left lung. Cultures negative as of today. New loculated left upper lobe fluid collection 03/01/2022.. Likely pleural hematoma. Lovenox discontinued. CT chest with organized moderate size left upper lobe pleural hematoma. Unchanged LLL loculated effusion. Status post tPA to the pleural space x2. only minimal improvement in LLL loculations. Pneumonia complicated with empyema left lung. Status post left chest tube. pH 7.2. Type 2 diabetes Leukocytosis Anemia. Plan . Updated 03/04 Patient to undergo second chest tube placement by interventional radiologist Continue current support Antibiotics Persistent left upper lobe pleural hematoma. There is expansion. Patient is status post 2 doses of tPA via chest tube. drainage less bloody and slowed down. Pleural hematoma has increase in CHRISTINA/ loculations persist in LLL. She needs VAT/ Decortication and pleural hematoma evacuation. I spoke with Dr Ryder at thoracic surgery. He accepted patient but declined for financial reasons. [facility] has declined as well per Dr Menendez. Dr Diaz at [facility] is out of town till march 11. I also spoke with [facility] transfer team, miley levy declined as well will consult IR in am for option of additional chest tube in CHRISTINA monitor cxr. Will need to monitor chest tube output closely. Monitor hemoglobin closely. Of Lovenox Antibiotics per infectious disease. Routine analysis of pleural fluid, including microbiology and cytology. pH is 7.29 Monitor blood sugars Off morphine. Pleural fluid cultures negative. Blood culture is a contaminant.ID following Discussed with patient and explained to her about the current situation. ARELY YANES MD March 04, 2022 09:29
--- NOTE | 2022-03-04 10:08 | PDOC ---
[employer] PROGRESS NOTE Date of Service DOS: DATE: 03/04/22 TIME: 10:06 Chief Complaint Chief Complaint Pneumonia and left pleural effusion. The patient will be admitted. We will start IV antibiotics, breathing treatments, oxygen. Consult Pulmonary, consult Interventional Radiology to consider left thoracentesis. Deep venous thrombosis prophylaxis. Full code. History of Present Illness History of Present Illness 03/04 Patient evaluated examined at bedside. Resting in bed clinically stable. Continues to wait transfer to for VATS. Clear for transfer anytime. 03/03 Evaluated examined at bedside. Output through 2 slowed down quite a bit. Patient without complaint. Awaiting transfer to . 03/02: Seen bedside. Afebrile no real cough pain is improved. After initial 300 cc output after last tPA infusion she has had 20 to 30 cc output. And chest radiograph pending may be able to clamp tube and pull today if pulmonary agrees. 03/01: Seen and examined at bedside. Shortness of breath stable. Chest tube still in place. Bloody output from chest tube after tPA. Pulmonary infectious disease recs reviewed. 02/28: Patient ports improvement in shortness of breath, currently breathing on 1 L O2. Chest tube in place. Discussed with pulmonology, will provide additional dose of tPA to further break up loculations. Complains of some constipation today, requesting docusate. 02/27: Afebrile. No worsening shortness of breath. Feels much better after insertion of tPA in the chest tube yesterday. Some complaints of constipation, but patient not willing to try any pharmacological measures. She is wanting to get up and walk around. Continue IV Zosyn, per ID. 02/26: Chest tube in place. She denies any worsening shortness of breath. Discussed with Dr. Rees, she would likely benefit from tPA via chest tube. ID has been consulted for gram-positive cocci in 1 of 3 bottles. Continue Zosyn. 02/25: Patient feels much better with chest tube in place. No worsening shortness of breath. She did have gram-positive cocci in 1 of 3 bottles. I have increase Rocephin to [address] consultation to ID. 02/24: Patient seen and evaluated. She states she is breathing much better with chest tube and removal of fluid. Still breathing on 2 L nasal cannula. Continue current IV antibiotics we will continue to wean oxygen as tolerated. 02/23: Patient evaluated examined at bedside. Resting in bed on nasal cannula st ill some shortness of breath. Discussed with patient and son at bedside at great length regarding plan of care. Continue IV antibiotics. Possible thoracentesis tomorrow. Pulmonary recommendations reviewed. Discussed with bedside RN. Vitals/I&O Vitals/I&O: Vital Signs Date Time Temp Pulse Resp B/P (MAP) Pulse Ox O2 Delivery O2 Flow Rate FiO2 03/04/22 09:05 98 Room Air 03/04/22 08:47 69 122/72 03/04/22 07:00 98.3 18 1.0 98.3 I & O 03/03/22 03/03/22 03/04/22 15:00 23:00 07:00 Intake Total 240 ml 540 ml 0 ml Balance 240 ml 540 ml 0 ml Physical Exam Physical Exam: GENERAL: Alert, oriented female, not in any distress. VITAL SIGNS: Stable. Afebrile. HEENT: NC/AT. NECK: Supple. No JVP. No lymphadenopathy. LUNGS: Clear. HEART: S1, S2, regular. ABDOMEN: Soft, nontender. No organomegaly. EXTREMITIES: No edema or cyanosis. SKIN: Unremarkable. NEUROLOGIC: The patient is alert, awake, and appropriate. No focal neurologic deficit. General: Alert, Oriented X3, Cooperative Heart: Regular rate, Normal S1, Normal S2 Lungs: Other (decreased throughout, left lung) Abdomen: Normal bowel sounds, Soft, No tenderness Extremities: No edema, Normal pulses Skin: No significant lesion Labs Labs: Laboratory Tests Test 03/03/22 11:18 03/03/22 16:45 03/03/22 19:27 03/04/22 07:35 Glucose (Fingerstick) 198 mg/dL (70-99) 130 mg/dL (70-99) 180 mg/dL (70-99) 104 mg/dL (70-99) Assessment and Plan Assessmemt and Plan Problems Medical Problems: (1) Back pain Status: Acute (2) Exertional dyspnea Status: Acute (3) Hypoxia Status: Acute (4) Large pleural effusion Status: Acute (5) Left lower lobe pneumonia Status: Acute Comment Review of Relevant I have reviewed the following items becca (where applicable) has been applied. Justifications for Admission Other Justification FREDDIE MOSLEY MD March 04, 2022 10:08
--- NOTE | 2022-03-04 10:21 | RAD ---
XR CHEST 1V History: Empyema CT chest Comparison: 03/03/2022, 03/02/2022 Technique: Portable AP radiograph of the chest. Findings: Redemonstrated left lower lobe pleural pigtail drainage catheter. No pneumothorax. The lungs are adequately inflated. There is a left upper lung loculated pleural fluid collection, sim ilar to recent comparisons. Left lower lobe opacity consistent with additional pleural fluid collecti on and airspace consolidation. Mild right basilar airspace disease, improved from comparison. The car diomediastinal silhouette and pulmonary vasculature are within normal limits. No acute osseous abnorm ality. Impression: 1. Left lower lung pigtail pleural drainage catheter redemonstrated. No pneumothorax. 2. Redemonstrated left upper and lower lung pleural collections with left greater than right airspac e disease. Electronically signed by: Manjinder Estevez MD (03/04/2022 10:19 AM) [id number]
[2022-03-04 11:00] VITALS: BP 112/55
--- NOTE | 2022-03-04 11:53 | PDOC ---
Infectious Disease Note Subjective: Subjective pt is feeling ok Denies any fever, chills, nausea, vomiting, diarrhea, abdominal pain CTS site pain is under control Vital Signs: Vital Signs Vital Signs Date Time Temp Pulse Resp B/P (MAP) Pulse Ox O2 Delivery O2 Flow Rate FiO2 03/04/22 11:00 97.7 96 18 112/55 (74) 92 Nasal Cannula 1.0 97.7 Physical Exam: PHYSICAL EXAM GENERAL: Alert, oriented female, not in any distress. VITAL SIGNS: Stable. Afebrile. HEENT: NC/AT. NECK: Supple. No JVP. No lymphadenopathy. LUNGS: Clear. HEART: S1, S2, regular. ABDOMEN: Soft, nontender. No organomegaly. EXTREMITIES: No edema or cyanosis. SKIN: Unremarkable. NEUROLOGIC: The patient is alert, awake, and appropriate. No focal neurologic deficit. Medications: Inpatient Meds: Medications reviewed. Labs: Lab Laboratory Tests Test 03/03/22 16:45 03/03/22 19:27 03/04/22 07:35 03/04/22 11:40 Glucose (Fingerstick) 130 mg/dL (70-99) 180 mg/dL (70-99) 104 mg/dL (70-99) 116 mg/dL (70-99) Objective: Assessment: 1. Complicated Left-sided empyema, status post chest tube drainage.Cult negative so far repeat CT Chest noted 2. Blood culture positive 1/3, gram-positive cocci, most likely to be contaminant.Staph coag neg 3. Pneumonia. 4. Obesity. 5. Diabetes. 6. Hypertension. Plan: Plan of Care Cont antibiotics Pulmonary team following closely Persistent CHRISTINA Pleural fluid likely hematoma Pulm is trying to transfer pt to tertiary center for VATs/Decortication and hematoma evacuation Transfer to [facility] , denied CTS not available at [facility] Antibiotics alone will not be optimal Pleural fluid neg so far Monitor labs and cultures Patient is awaiting IR drainage as an alternative option tomorrow D/W pt , she verbalizes understanding D/W EVANGELINA DESAI MD March 04, 2022 11:53
[2022-03-04 19:00] VITALS: BP 113/68
[2022-03-04] MEDS: ATORVASTATIN CALCIUM 40 MG TABLET. PO SCH (21:45)
[2022-03-04] MEDS: INSULIN GLARGINE SYRINGE. SQ SCH (21:49)
== END 2022-03-05 | disposition home or self-care (01) | DRG 871 ==
LOC: ER 18:58 → 5 NORTH 20:44
PROVIDERS: ADMIT Internal Medicine; ATTEND Internal Medicine
PROC: 0W9930Z Drainage of Right Pleural Cavity with Drainage Device, Percutaneous Approach (ICD-10-PCS; principal; 2022-02-26)
PROC: 3E03317 Introduction of Other Thrombolytic into Peripheral Vein, Percutaneous Approach (ICD-10-PCS; 2022-02-26)
DX: A41.9 Sepsis, unspecified organism (principal); J18.9 Pneumonia, unspecified organism; J86.9 Pyothorax without fistula; J91.8 Pleural effusion in other conditions classified elsewhere; J98.11 Atelectasis; D64.9 Anemia, unspecified; E11.9 Type 2 diabetes mellitus without complications; E66.01 Morbid (severe) obesity due to excess calories; I10 Essential (primary) hypertension; K59.00 Constipation, unspecified; Z79.4 Long term (current) use of insulin; Z83.3 Family history of diabetes mellitus; F32.A Depression, unspecified; Z68.38 Body mass index [BMI] 38.0-38.9, adult; Z20.822 Contact with and (suspected) exposure to COVID-19
CPT/HCPCS: 32557; 36415; 71045; 71250; 71275; 80048; 80053; 82962; 83605; 83880; 83986; 84484; 85007; 85025; 85027; 85379; 87040; 87075; 87116; 87426; 88112; 88305; 89050; 93005; 94640; 94760; 96361; 96365; 96375; J0696; J0780; J1650; J1815; J2270; J2405; J2543; J2997; J3010; J3490; J7030; J7060; Q9967; 99285-25; G0378